=== PATIENT | female | born 1940 | race Caucasian/White ===

== ENCOUNTER 2017-01-03 17:05 | Observation (INO) ==
--- NOTE | 2017-01-03 17:17 | Emergency Department Note ---
Disposition Clinical Impression: Near syncope Abdominal pain Qualifiers: Abdominal location: epigastric Qualified Code(s): R10.13 - Epigastric pain Pancreatitis Qualifiers: Chronicity: acute Pancreatitis type: unspecified pancreatitis type Acute pancreatitis complication: unspecified Qualified Code(s): K85.90 - Acute pancreatitis without necrosis or infection, unspecified Disposition: Admitted As Inpatient Condition: Fair Referrals: NO,PCP [Non-Partnered Physician] - Forms: Work/School Release, ED Satisfaction Letter Time of Disposition: 19:29 Abdominal Pain HPI - General Chief Complaint: ED General Medical Stated Complaint: HYPOTENSION Time Seen by Provider: 01/03/17 17:10 Source: patient, EMS Mode of arrival: EMS Limitations: no limitations Nursing Notes Reviewed: Yes Vital Signs Reviewed: Yes - History of Present Illness HPI Narrative: Patient presents to the ED as a transfer from her primary care physician's office with hypotension. Patient reports that she had a checkup with her primary care physician a few weeks ago and was told that she needed to get an appointment to come in immediately. She was just able to get in a few days ago. She was told that she was anemic and they were unsure why. Patient reports that over the last 3 days she has had some diffuse crampy, stabbing bilateral lower quadrant abdominal pain. States that the pain has been getting worse and worse. She feels very weak and fatigued and feels very tired. 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 She presents from her PCPs office for hypotension and pain. No history of ulcers. Only abdominal surgery is hysterectomy several years ago. No fever or chills, shortness of breath, nausea , vomiting, diarrhea, melena, hematochezia, hematemesis, dysuria, pain or swelling in her legs. She also has been having epigastric pain, but she says it could be chest discomfort but denies any "chest pain" - Related Data Home Medications Medication Instructions Recorded Confirmed Calcium Carbonate/Vitamin D3 1 each PO DAILY 01/03/17 01/03/17 [Calcium 500 + Vit D 200 Caplet] Cholecalciferol (D-3) [Vitamin D] 1,000 unit PO DAILY 01/03/17 01/03/17 Ferrous Sulfate 325 mg PO BIDWM 01/03/17 01/03/17 Gabapentin [Neurontin] 1,200 mg PO HS 01/03/17 01/03/17 HYDROcodone/Acet 5/325 mg [[place] 1 tab PO TID PRN 01/03/17 01/03/17 5-325 mg] Lisinopril/Hydrochlorothiazide 0.5 each PO BID 01/03/17 01/03/17 [Zestoretic 20-12.5 mg Tablet] Metformin HCl [Metformin HCl ER] 1,000 mg PO QPM 01/03/17 01/03/17 [place]-3/Dha/Epa/Fish Oil [[place]-3 1,000 mg PO DAILY 01/03/17 01/03/17 Fish Oil 1,000 mg Sfgl] Omeprazole [PriLOSEC] 20 mg PO BIDAC 01/03/17 01/03/17 Pravastatin Sodium [Pravachol] 40 mg PO HS 01/03/17 01/03/17 Tamsulosin [Flomax] 0.4 mg PO DAILY 01/03/17 01/03/17 Allergies Allergy/AdvReac Type Severity Reaction Status Date / Time No Known Allergies Allergy Verified 01/03/17 17:22 All systems ED: reviewed and negative except as stated. Constitutional: Reports: weakness Cardiovascular: Reports: chest pain Gastrointestinal: Reports: abdominal pain. Denies: constipation, hematemesis, melena, hematochezia Musculoskeletal: Denies: back pain, neck pain Integumentary: Denies: rash Neurological: Reports: weakness (generalized ) Endocrine: Reports: fatigue Physical Exam - General Limitations: no limitations General appearance: alert, other (appears ill) - Head Head exam: atraumatic, normocephalic, normal inspection - Eye Eye exam: Present: normal appearance, PERRL, EOMI - ENT ENT exam: normal exam, normal oropharynx, mucous membranes dry - Neck Neck exam: Present: normal inspection, full ROM, trachea midline - Chest Chest inspection: Present: normal inspection, symmetric chest wall rise - Respiratory Respiratory exam: Present: normal lung sounds bilaterally - Cardiovascular Cardiovascular exam: Present: regular rate, normal rhythm, normal heart sounds - Abdominal Exam Abdominal exam: Present: soft, tenderness, distention (lower abdomen ), diminished bowel sounds, tenderness at [place]Burney's Point. Absent: guarding, rebound - Extremities Exam Extremities exam: Present: normal inspection, full ROM. Absent: pedal edema, calf tenderness - Neurological Exam Neurological exam: Present: alert, oriented X3, CN II-XII intact - Psychiatric Psychiatric exam: Present: anxious - Skin Skin exam: Present: warm, dry, intact, pallor. Absent: normal color Course Course Narrative: 76 year old female presenting with hypotension, suspected anemia and abdominal pain. Supposedly, patient is blood pressure was 60 systolic by EMS, but has not had any hypotension here. Labs are pending. CT ordered. - Reevaluation(s) Reevaluation #1: Patient's labs are back, and does not significantly anemic. CT scan did show a AAA without rupture. Lipase is elevated. To be related to pancreatitis. Patient still looks quite uncomfortable. Vital signs are stable. We will admit to the hospitalist service for near syncope, abdominal pain. Vital Signs Temperature 98 F 01/03/17 17:07 Pulse Rate 77 01/03/17 17:07 Respiratory Rate 22 01/03/17 17:07 Blood Pressure 146/73 01/03/17 17:07 O2 Sat by Pulse Oximetry 97 01/03/17 17:07 Temperature 98 F 01/03/17 17:07 Pulse Rate 71 01/03/17 19:08 Respiratory Rate 18 01/03/17 18:09 Blood Pressure 105/72 01/03/17 19:08 O2 Sat by Pulse Oximetry 94 01/03/17 19:08 Oxygen Delivery Oxygen Delivery Room Air Abdominal Pain - MDM Narrative Medical decision making narrative: I examined this patient and my medical decision-making was reviewed with the REWORK OPERATOR/PA/Advanced Practice Nurse/Resident Physician. I agree with the documented findings, disposition and treatment plan as described except to the extent set forth below. Patient was seen and evaluated on arrival by Dr. Adkins and myself, I agree with his evaluation and management plan, supervising care the patient's stay. Patient came from home she began feeling weak. Her family doctor said she is anemic and thinks she might have an ulcer or GI bleed. When the medics got there they said her blood pressures in the 60s they established 2 IVs of her fluids her pressures up to 120. Return to go ahead and get labs on her CT her abdomen and then reassess. She will most likely need admission. She is in agreement with plan. Chest X-Ray 01/03/17 17:09 IMPRESSION: No acute process. D/ / Inna Marroquin MD / Inna Marroquin MD Interpreting Provider: Inna Marroquin MD Abdomen/Pelvis CT 01/03/17 17:14 IMPRESSION: Fusiform infrarenal abdominal aortic aneurysm measuring 4.3 x 4.2 cm. Recommend follow up based on AAA recommendations below. No acute intra-abdominal or pelvic process is identified. Simple appearing left renal cyst. Pancreatic calcifications likely related to chronic pancreatitis. Diverticulosis without acute diverticulitis. RECOMMENDATIONS: Managing Abdominal Aortic Aneurysms 2.6-2.9 cm: 5 year follow up. 3.0-3.4 cm: 3 year follow up 3.5-3.9 cm: 1 year follow up. 4.0-4.4 cm: 1 year follow up. Recommend vascular consultation. 4.5-5.4 cm: 6 month follow up. Recommend vascular consultation. Greater than or equal to 5.5 cm: Referral to vascular surgeon. Reference: Ama et al. The care of patients with an abdominal aortic aneurysm: The Society of Vascular Surgery practice guidelines. Journal of Vascular Surgery. Vol 50, Number 85. Rogerio et al. Managing Incidental Findings on Abdominal and Pelvic CT and MRI, Part 2: White Paper of the ACR Incidental Findings Committee II on Vascular Findings. J Am Bessie Radiol 2013;10:789-794 D/ / Armando Lange MD / Armando Lange MD Interpreting Provider: Armando Lange MD - Medical Records Medical records reviewed: Yes I reviewed the patient's medical records. - Lab Data Lab results reviewed: Yes I reviewed the patient's lab results. Result diagrams: 01/03/17 17:47 01/03/17 17:47 Lab Results 01/03/17 01/03/17 01/03/17 Range/Units 17:47 17:47 17:47 WBC 9.3 (4.3-11.1) K/mcL RBC 4.35 (3.82-4.97) M/mcL Hgb 10.0 L (11.5-15.4) g/dL Hct 32.7 L (35.3-44.9) % MCV 75.2 L (83.0-100.0) fL MCH 23.0 L (28.0-33.3) pg MCHC 30.6 L (31.6-35.5) g/dL RDW 18.0 H (11.5-14.5) % Plt Count 236 (140-400) K/mcL MPV 9.6 (9.4-12.4) fL Immature Gran % 0.4 (0-4) % Seg Neutrophils % 70.9 % Lymphocytes % 18.8 % Monocytes % 9.2 % Eosinophils % 0.6 % Basophils % 0.1 % Neutrophils # 6.6 (1.6-8.9) K/mcL Lymphocytes # 1.8 (0.6-4.6) K/mcL Monocytes # 0.9 (0.0-1.3) K/mcL Eosinophils # 0.1 (0.0-0.6) K/mcL Basophils # 0.0 (0.0-0.2) K/mcL Sodium 135 L (136-145) mEq/L Potassium 3.7 (3.5-4.5) mEq/L Chloride 99 (98-109) mEq/L Carbon Dioxide 28 (19-29) mEq/L BUN 17 (7-20) mg/dL Creatinine 0.79 (0.57-1.11) mg/dL Est GFR ( Amer) > 60 (> 60) Est GFR (Non-Af Amer) > 60 (> 60) BUN/Creatinine Ratio 22 (6-26) Glucose 95 (70-99) mg/dL Calculated Osmolality 281 (280-300) Calcium 9.5 (8.6-10.8) mg/dL Total Bilirubin 0.6 (0.2-1.2) mg/dL AST 12 (5-34) Units/L ALT 8 (0-55) Units/L Alkaline Phosphatase 67 (38-126) Units/L Troponin I 0.00 (0-0.03) ng/mL Serum Total Protein 6.4 (6.0-8.3) g/dL Albumin 3.5 (3.5-5.0) g/dL Globulin 2.9 (2.4-3.5) g/dL Albumin/Globulin Ratio 1.2 (1.1-2.2) Lipase 133 H (8-78) Units/L Urine Color (Yellow) Urine Clarity (Clear) Urine pH (5.0-8.0) pH Units Ur Specific [place] (1.010-1.025) Urine Protein (Neg-Trace) mg/dL Urine Glucose (UA) (Normal) mg/dL Urine Ketones (Negative) mg/dL Urine Blood (Negative) Urine Nitrite (Negative) Urine Bilirubin (Negative) Urine Urobilinogen (Normal) mg/dL Ur Leukocyte Esterase (Negative) Ur Culture Indicated? (NO) Blood Type Antibody Screen 01/03/17 01/03/17 Range/Units 17:47 17:52 WBC (4.3-11.1) K/mcL RBC (3.82-4.97) M/mcL Hgb (11.5-15.4) g/dL Hct (35.3-44.9) % MCV (83.0-100.0) fL MCH (28.0-33.3) pg MCHC (31.6-35.5) g/dL RDW (11.5-14.5) % Plt Count (140-400) K/mcL MPV (9.4-12.4) fL Immature Gran % (0-4) % Seg Neutrophils % % Lymphocytes % % Monocytes % % Eosinophils % % Basophils % % Neutrophils # (1.6-8.9) K/mcL Lymphocytes # (0.6-4.6) K/mcL Monocytes # (0.0-1.3) K/mcL Eosinophils # (0.0-0.6) K/mcL Basophils # (0.0-0.2) K/mcL Sodium (136-145) mEq/L Potassium (3.5-4.5) mEq/L Chloride (98-109) mEq/L Carbon Dioxide (19-29) mEq/L BUN (7-20) mg/dL Creatinine (0.57-1.11) mg/dL Est GFR ( Amer) (> 60) Est GFR (Non-Af Amer) (> 60) BUN/Creatinine Ratio (6-26) Glucose (70-99) mg/dL Calculated Osmolality (280-300) Calcium (8.6-10.8) mg/dL Total Bilirubin (0.2-1.2) mg/dL AST (5-34) Units/L ALT (0-55) Units/L Alkaline Phosphatase (38-126) Units/L Troponin I (0-0.03) ng/mL Serum Total Protein (6.0-8.3) g/dL Albumin (3.5-5.0) g/dL Globulin (2.4-3.5) g/dL Albumin/Globulin Ratio (1.1-2.2) Lipase (8-78) Units/L Urine Color Yellow (Yellow) Urine Clarity Clear (Clear) Urine pH 6.5 (5.0-8.0) pH Units Ur Specific [place] 1.005 L (1.010-1.025) Urine Protein Negative (Neg-Trace) mg/dL Urine Glucose (UA) Normal (Normal) mg/dL Urine Ketones Negative (Negative) mg/dL Urine Blood Negative (Negative) Urine Nitrite Negative (Negative) Urine Bilirubin Negative (Negative) Urine Urobilinogen Normal (Normal) mg/dL Ur Leukocyte Esterase Negative (Negative) Ur Culture Indicated? NO (NO) Blood Type O POSITIVE Antibody Screen NEGATIVE - Radiology Data Radiology results reviewed: Yes I reviewed the patient's radiology results. - EKG Data EKG attestation: Yes I reviewed and interpreted this EKG. EKG results narrative: Sinus rhythm, rate 74, AK interval 147, QRS 87, QTC 43, normal axis, no ischemic changes. Krunal - Krunal Situation: Demographics, MOA Background: Presenting Complaint, Relevant PMH, Meds, & Allergies Assessment: Vital Signs, Course and respsone to treatment, Exam Concerns, Patient/Family Expectation, Pertinant Lab Results, Outstanding Labs Recommendation: Recommendation based on pending studies, treatments, or consults Krunal Report Given to: Dr. Donald Hector Repor Time: 19:29
[2017-01-03 17:53] LABS: Basophils % 0.1 %; Eosinophils # 0.1 K/mcL (0.0-0.6); Eosinophils % 0.6 %; Hematocrit 32.7 % (35.3-44.9); Immature Granulocytes % 0.4 % (0-4); Lymphocytes # 1.8 K/mcL (0.6-4.6); Lymphocytes % 18.8 %; Mean Corpuscular HGB Conc 30.6 g/dL (31.6-35.5); Mean Corpuscular Volume 75.2 fL (83.0-100.0); Mean Platelet Volume 9.6 fL (9.4-12.4); Monocytes # 0.9 K/mcL (0.0-1.3); Monocytes % 9.2 %; Neutrophils # 6.6 K/mcL (1.6-8.9); Platelet Count 236 K/mcL (140-400); Red Blood Count 4.35 M/mcL (3.82-4.97); Segmented Neutrophils % 70.9 %
[2017-01-03 18:02] LABS: Bilirubin,Urine Negative (Negative); Blood,Urine Negative (Negative); Clarity,Urine Clear (Clear); Color,Urine Yellow (Yellow); Glucose,Urine (UA) Normal (Normal); Ketones,Urine Negative (Negative); Leukocyte Esterase,Urine Negative (Negative); Nitrite,Urine Negative (Negative); PH,Urine 6.5 pH Units (5.0-8.0); Protein,Urine Negative (Neg-Trace); Specific Gravity,Urine 1.005 (1.010-1.025); Urobilinogen,Urine Normal (Normal)
[2017-01-03 18:09] LABS: Alanine Aminotransferase 8 Units/L (0-55); Albumin 3.5 g/dL (3.5-5.0); Albumin/Globulin Ratio 1.2 (1.1-2.2); Alkaline Phosphatase 67 Units/L (38-126); Aspartate Amino Transferase 12 Units/L (5-34); BUN/Creatinine Ratio 22 (6-26); Bilirubin,Total 0.6 mg/dL (0.2-1.2); Blood Urea Nitrogen 17 mg/dL (7-20); Calcium 9.5 mg/dL (8.6-10.8); Carbon Dioxide 28 mEq/L (19-29); Chloride 99 mEq/L (98-109); Globulin 2.9 g/dL (2.4-3.5); Glucose 95 mg/dL (70-99); Lipase 133 Units/L (8-78); Osmolality,Calculated 281 (280-300); Potassium 3.7 mEq/L (3.5-4.5); Sodium 135 mEq/L (136-145); Total Protein 6.4 g/dL (6.0-8.3); eGFR For African Americans > 60 (> 60); eGFR For Non-African Americans > 60 (> 60)
--- NOTE | 2017-01-03 20:34 | Internal Med History&Physical ---
<Daniel Duran - Last Filed: 01/04/17 02:21> Date of Encounter: 01/04/17 Time of Encounter: 20:34 Assessment and Plan (1) Abdominal pain Current visit: Yes Status: Acute -Epigastrium and bilateral lower abdominal pain. -Worse with eating. Relieved by rest/belching/flatus -PMH of IBS. -No hx of pancreatitis -CT abd w/out contrast or IV: 4.3 x 4.2 AAA, chronic pancreatitis, diverticulosis, anterior bladder wall thickening -Lipase 133. -Patient not hypotensive, no buits heard on abdominal exam, no paritoneal signs. Not concern for small AAA rupture. -No WBC or fever: doubt diverticulitis. -History of ulcers "one was dime size". Unsure if h pylori. Pain and symptoms suggest recurrent ulcer. Can explain drop in hgb. Feel like EGD is warranted. -UA negative. Hysterectomy. Denies dysuria. Plan -Consult GI: EDG and colonoscopy -Treat pancreatitis:fluids, NPO, pain control -NPO with sips for oral meds Qualifiers: Abdominal location: unspecified location Qualified Code(s): R10.9 - Unspecified abdominal pain (2) Diverticulosis Current visit: Yes Status: Acute -Revealed on CT from ED -Patient unaware of diverticulosis ddx Qualifiers: Diverticulosis bleeding: diverticulosis without bleeding (3) IBS (irritable bowel syndrome) Current visit: Yes Status: Acute -known history Qualifiers: Irritable bowel syndrome type: with both diarrhea and constipation Qualified Code(s): K58.2 - Mixed irritable bowel syndrome (4) History of gastric ulcer Current visit: Yes Status: Acute Plan -Consult GI for possible EGD (5) Diabetes Current visit: Yes Status: Acute -Consider sliding scale -D/c metformin for now Qualifiers: Diabetes mellitus type: type 2 Diabetes mellitus complication status: with unspecified complications 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 Concern for anemia and bleeding gastric ulcer. (8) Anemia Current visit: Yes Status: Acute -History of gastric ulcers -Hgb 8-->10 Plan -No intervention at this time -Continue to monitor Internal Medicine - H&P: HPI Chief complaint: Bilateral Lower abdominal pain Admitted From: Home Plans for Post Hospital Care: Home History of present illness: Ms. Tillman is a 76 year old female admitted for anemia, abdominal pain. Patient complaints of Epigastric, LLQ and RLQ pain. Bilateral LLQ and RLQ pain has patient most concerned. Has had pain for past couple of months. However, 2 days ago pain woke her up from sleep. Described as sharp and stabbing. Aggravated by eating. Revlieved by flatus. She has a known history of IBS and last colonoscopy 2-[address] Mar was normal. Epigastric pain for the last 7 days. Described as gnawing, burning and sharp at times. Worse with eating. Relieved by belching. Denies F/N/V. Admits to Diarrhea and constipation. No melena or hematochezia. EGD 20-30 years ago showed ulcers and she was "prescribed an antibiotic and rescoped a month later" , unsure if being treated for h pylori infection. Denies SUAREZ, numbness, tingling, focal neurological deficit. CP/SOB. Patient unaware of AAA discovered on CT today. Discussed with patient and need for frequent f/u. Unaware of diverticulosis, anterior bladder wall thickening. 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 Denies cholecysectomy. PMH:Gastric ulcers, IBS, DM. Denies pancreatitis SH:Former smoker, doesn't drink alcohol Past Med Surg Social Fam HX - Past Medical History Medical history: diabetes, hyperlipidemia, hypertension Psychiatric history: anxiety, depression - Past Surgical History Surgical History: hysterectomy - Social History Smoking Status: Former smoker Smokeless Tobacco Status: No Alcohol use: none Drug use: none - Family History Father Living Status: Cause of : [place] Hx Family Cardiac Disorders: Yes ([place]) Mother Living Status: Age at : 65 Hx Family Cardiac Disorders: Yes ([place]) Hx Family Endocrine Disorder: Yes ([place]) Brother Living Status: Cause of : [place] Hx Family Cardiac Disorders: Yes ([place]) Internal Medicine - H&P: Meds Calcium Carbonate/Vitamin D3 [Calcium 500 + Vit D 200 Caplet] 1 each PO DAILY [History] Cholecalciferol (D-3) [Vitamin D] 1,000 unit PO DAILY 01/03/17 [History] Ferrous Sulfate 325 mg PO BIDWM 01/03/17 [History] Gabapentin [Neurontin] 1,200 mg PO HS 01/03/17 [History] HYDROcodone/Acet 5/325 mg [[place] 5-325 mg] 1 tab PO TID PRN 01/03/17 [History] Lisinopril/Hydrochlorothiazide [Zestoretic 20-12.5 mg Tablet] 0.5 each PO BID [History] Metformin HCl [Metformin HCl ER] 1,000 mg PO QPM 01/03/17 [History] [place]-3/Dha/Epa/Fish Oil [[place]-3 Fish Oil 1,000 mg Sfgl] 1,000 mg PO DAILY [History] Omeprazole [PriLOSEC] 20 mg PO BIDAC 01/03/17 [History] Pravastatin Sodium [Pravachol] 40 mg PO HS 01/03/17 [History] Tamsulosin [Flomax] 0.4 mg PO DAILY 01/03/17 [History] Allergies No Known Allergies Allergy (Verified 01/03/17 17:22) All Systems PM: A 10-system review of systems was performed and is negative for pertinent findings except as documented above in the HPI. - Constitutional Constitutional: as per HPI - EENT Eyes: as per HPI - Cardiovascular Cardiovascular ROS IM: as per HPI - Respiratory Respiratory: as per HPI - Gastrointestinal Gastrointestinal: as per HPI - Constitutional Vitals: Temp Pulse Resp BP Pulse Ox 98 F 71 20 134/87 94 01/03/17 17:07 01/03/17 19:08 01/03/17 20:15 01/03/17 20:15 01/03/17 19:08 General appearance: Present: mild distress, A&O X 3, answers questions appropriately - Head Head exam: Present: atraumatic, normocephalic - Eye Eye exam: Present: PERRL, conjuntiva pink, sclera anicteric Pupils: Present: PERRL - Respiratory Respiratory exam: Present: CTAB. Absent: accessory muscle use, rales, rhonchi, wheezes - Cardiovascular Cardiovascular exam: Present: RRR, +S1, +S2. Absent: diastolic murmur, gallop, rubs, systolic murmur - GI/Abdominal GI/Abdominal exam: Present: normal bowel sounds, soft (moderate ), tenderness, no peritoneal signs. Absent: guarding, mass - Psychiatric Psychiatric exam: Present: normal affect, normal mood Internal Med - H&P Results - Labs CBC & Chem 7: 01/03/17 17:47 01/03/17 17:47 - EKG Data -: EKG Interpreted by Myself EKG shows normal: sinus rhythm - EKG Data Prior EKG available for review: no Interpretation IM: normal EKG - Diagnostic Studies CT scan - abdomen Status: image reviewed by me Other Images Status: image reviewed by me <Louisa Bennett - Last Filed: 01/04/17 05:43> Date of Encounter: 01/04/17 Internal Medicine - H&P: HPI History of present illness: Ms. Tillman is a 76 year old female All Systems PM: A 10-system review of systems was performed and is negative for pertinent findings except as documented above in the HPI. - Constitutional Vitals: Temp Pulse Resp BP Pulse Ox 98.1 F 84 16 107/58 96 01/04/17 04:18 01/04/17 04:18 01/04/17 04:18 01/04/17 04:18 01/04/17 04:18 Internal Med - H&P Results - Labs CBC & Chem 7: 01/04/17 04:25 01/04/17 04:25 Labs: Short CBC 01/04/17 Range/Units 04:25 WBC 7.6 (4.3-11.1) K/mcL Hgb 9.1 L (11.5-15.4) g/dL Hct 29.9 L (35.3-44.9) % Plt Count 225 (140-400) K/mcL Neutrophils # 4.7 (1.6-8.9) K/mcL BMP 01/04/17 04:25 Sodium 139 Potassium 3.6 Chloride 104 Carbon Dioxide 29 BUN 12 Creatinine 0.71 Glucose 93 Calcium 8.7 - Attending Attestation Patient seen and examined, agree with assessment and plan of PGY-1 Daniel Reyes. Patient with reported hypotension and near syncope at PCP office in setting of epigastric and lower abdominal pain. Concern for both peptic ulcer disease and pancreatitis. Anemia is new and concerning about bleeding ulcer. GI consulted for assistance. BP stable since patient arrived in ER. Will hold lisinopril/HCTz. IV fluids for pancreatitis.
[2017-01-03] MEDS ORDERED: Naloxone 0.4 MG/ML INJ IVP PRN (21:08)
[2017-01-03] MEDS ORDERED: MOM Conc 10 ML UD.LIQ PO PRN (21:08)
[2017-01-03] MEDS ORDERED: Ondansetron 4 MG/2 ML VIAL IVP PRN (21:08)
[2017-01-03] MEDS ORDERED: *HR* HYDROcodone/Acet 5/325 mg TABLET PO PRN (21:13)
[2017-01-03] MEDS ORDERED: Lisinopril-HCTZ 20-12.5mg TABLET PO SCH (21:15)
[2017-01-03] MEDS: Gabapentin 400 MG CAPSULE PO SCH (21:44)
[2017-01-03] MEDS: 0.9 % Sodium Chloride 1,000 ML IVC SCH (21:45)
[2017-01-03] MEDS ORDERED: D5% in Water 1,000 ML IVC PRN (23:21)
[2017-01-03] MEDS ORDERED: *HR* Dextrose 50 % in Water (Syg) 50 ML SYRINGE IVP PRN (23:21)
[2017-01-03] MEDS ORDERED: Dextrose Gel 15 GM PO PRN ×2 (23:21)
[2017-01-03] MEDS: Insulin LISPRO 300 UNITS/3 ML VIAL SQ SCH (23:29)
[2017-01-04] MEDS: *HR* Morphine 2 MG/ML SYRINGE IVP PRN ×3 (00:57→11:03)
[2017-01-04 04:48] LABS: INR 1.2; Prothrombin Time 12.8 Seconds (9.4-12.1)
[2017-01-04 04:51] LABS: Activated Partial Thrombo Time 23.9 Seconds (26.0-36.0)
[2017-01-04 04:52] LABS: Basophils % 0.1 %; Eosinophils # 0.1 K/mcL (0.0-0.6); Eosinophils % 1.6 %; Hematocrit 29.9 % (35.3-44.9); Hemoglobin 9.1 g/dL (11.5-15.4); Immature Granulocytes % 0.5 % (0-4); Lymphocytes # 2.1 K/mcL (0.6-4.6); Lymphocytes % 27.9 %; Mean Corpuscular HGB Conc 30.4 g/dL (31.6-35.5); Mean Corpuscular Hemoglobin 23.2 pg (28.0-33.3); Mean Corpuscular Volume 76.3 fL (83.0-100.0); Mean Platelet Volume 9.6 fL (9.4-12.4); Monocytes # 0.6 K/mcL (0.0-1.3); Monocytes % 8.2 %; Neutrophils # 4.7 K/mcL (1.6-8.9); Platelet Count 225 K/mcL (140-400); Red Blood Count 3.92 M/mcL (3.82-4.97); Red Cell Distribution Width 18.2 % (11.5-14.5); Segmented Neutrophils % 61.7 %
[2017-01-04 05:07] LABS: BUN/Creatinine Ratio 17 (6-26); Blood Urea Nitrogen 12 mg/dL (7-20); Calcium 8.7 mg/dL (8.6-10.8); Carbon Dioxide 29 mEq/L (19-29); Chloride 104 mEq/L (98-109); Glucose 93 mg/dL (70-99); Osmolality,Calculated 287 (280-300); Potassium 3.6 mEq/L (3.5-4.5); Sodium 139 mEq/L (136-145); eGFR For African Americans > 60 (> 60); eGFR For Non-African Americans > 60 (> 60)
[2017-01-04] MEDS: 0.9 % Sodium Chloride 1,000 ML IVC SCH ×3 (05:42→21:23)
[2017-01-04] MEDS ORDERED: *HR* Enoxaparin 40 MG/0.4 ML SYRINGE SQ SCH (06:00)
[2017-01-04] MEDS: Insulin LISPRO 300 UNITS/3 ML VIAL SQ SCH ×3 (06:12→19:30)
[2017-01-04] MEDS: Cholecalciferol (D-3) 1,000 UNIT TABLET PO SCH (08:12)
[2017-01-04] MEDS: Omega-3 Fish Oil 1,000 Mg PO SCH (08:12)
[2017-01-04] MEDS: Calcium 500-Vit D3 PO SCH (08:12)
[2017-01-04 10:22] LABS: % Iron Saturation 21 % (15-50); Iron 87 mcg/dL (50-170); Transferrin 294 mg/dL (180-382)
[2017-01-04 10:36] LABS: Ferritin 28 ng/ml (5-204)
--- NOTE | 2017-01-04 11:40 | Electrocardiograph Report ---
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
[2017-01-04 11:44] LABS: Folate 13.1 ng/mL (7.0-31.4)
--- NOTE | 2017-01-04 12:35 | Gastroenterology Consult Note ---
<Bowen [place] - Last Filed: 01/04/17 12:32> Date of Encounter: 01/04/17 Time of Encounter: 10:45 - Assessment and plan (1) Pancreatitis Current Visit: Yes Status: Acute Assessment and plan: Lipase slightly elevated to 133. CT A/P with no focal pancreatic mass, no peripancreatic inflammatory process identified, a crit calcifications are seen likely related to chronic pancreatitis. Abdominal aortic aneurysm measuring 4.3 x 4.2 cm. Continue IV fluids, pain control, and antiemetics. Qualifiers: Chronicity: acute Pancreatitis type: unspecified pancreatitis type Acute pancreatitis complication: unspecified Qualified Code(s): K85.90 - Acute pancreatitis without necrosis or infection, unspecified (2) [place] Current Visit: Yes Status: Acute Assessment and plan: Hgb 10 on admission and 9.1 this AM. Iron profile and ferritin pending. Continue to monitor CBC and transfuse PRBC as needed. Plan for EGD and colonoscopy tomorrow. Clear liquid diet today, no red or purple. NPO at midnight. If unable tolerate NuLytely please use MiraLAX prep. If not clear by 6 AM, give 2 tap water enemas. (3) History of gastric ulcer Current Visit: Yes Status: Acute (4) Abdominal pain Current Visit: Yes Status: Acute Assessment and plan: Epigastric and LUQ pain. Concern for ulcer. Continue PPI. Plan for EGD tomorrow to r/o esophagitis, gastritis, duodenitis, PUD, MW tear, or AVM. Qualifiers: Abdominal location: epigastric Qualified Code(s): R10.13 - Epigastric pain - Time Spent With Patient Total time spent is greater than 50% in coordination of care (as documented) at patient's floor/unit and/or counseling patient: GI History of Present Illness - Data of Consult Patient: new to practice Consult date: 01/04/17 Requesting Physician: Maribell Beltrán - Consult Narrative Reason for consult: epigastric pain, hx of ulcer History of present illness: Ms. Tillman is a 76 year old female with PMHx of DM, HLD, HTN who presented with epigastric, LLQ, and RLQ abdominal pain. She reports the pain has been present for the past couple of months, but worsened over the past 2 days. She states the pain woke her from sleep and described the pain as sharp and stabbing. Pain is worsened by eating and relieved with flatus. Her epigastric pain started 7 days ago, which is worsened with eating and relieved with belching. She states she was started on omeprazole 2 days ago, and it has not improved symptoms. She denies fever, nausea, or vomiting. Admits to diarrhea and constipation. No melena or hematochezia. Hgb on admission was 10 and this AM Hgb 9.1. Procedures: Colonoscopy 03/09/2014 Dr. Mar: Diverticulosis, repeat colonoscopy in 7 years. NSAIDs: None Anticoagulation: None Past Med Surg Social Fam HX - Past Medical History Medical history: diabetes, hyperlipidemia, hypertension Psychiatric history: anxiety, depression - Past Surgical History Surgical History: hysterectomy - Social History Smoking Status: Former smoker Smokeless Tobacco Status: No Alcohol use: none Drug use: none - Family History Father Living Status: Cause of : [place] Hx Family Cardiac Disorders: Yes ([place]) Mother Living Status: Age at : 65 Hx Family Cardiac Disorders: Yes ([place]) Hx Family Endocrine Disorder: Yes (DM) Brother Living Status: Cause of : [place] Hx Family Cardiac Disorders: Yes ([place]) - Gastrointestinal Gastrointestinal: Present: as per HPI - Constitutional Constitutional: as per HPI - EENT Eyes: as per HPI Ears: Present: as per HPI Nose, mouth and throat: Present: as per HPI - Cardiovascular Cardiovascular ROS: Present: as per HPI - Respiratory Respiratory IM: Present: as per HPI - Genitourinary Genitourinary: Absent: change in color, Urinary frequency - Neurological ROS Neurological GI: Present: as per HPI - Hematologic/Lymphatic Hematologic/Lymphatic pediatric: Present: as per HPI - Musculoskeletal Musculoskeletal ROS GI: Present: as per HPI - Integumentary Integumentary GI: Present: as per HPI - Psychiatric ROS Psychiatric GI: Present: as per HPI - Endocrine Endocrine IM: Present: as per HPI - Constitutional Vitals: Temp Pulse Resp BP Pulse Ox 98.1 F 75 15 156/67 98 01/04/17 11:13 01/04/17 11:13 01/04/17 11:13 01/04/17 11:13 01/04/17 11:13 General appearance: Present: cooperative, A&O X 3, no acute distress, answers questions appropriately - Head Head exam: Present: atraumatic, normocephalic - Eye Eye exam: Present: normal appearance, sclera anicteric - ENT ENT exam: Present: mucous membranes dry - Neck Neck exam general surgery: Present: normal inspection, trachea midline - Respiratory Respiratory exam: Present: CTAB. Absent: rales, rhonchi - Cardiovascular Cardiovascular exam: Present: RRR, +S1, +S2 - GI/Abdominal GI/Abdominal exam: Present: soft, tenderness (epigastric and LUQ), no peritoneal signs. Absent: distended, firm, guarding - Rectal Rectal exam: Present: deferred - Extremities Exam Extremities exam: Present: warm - Neurological Exam Neurological exam: Present: no focal deficits - Psychiatric Psychiatric exam: Present: normal affect, normal mood - Skin Skin exam: Present: dry, intact, normal color, warm Results - Labs CBC & Chem 7: 01/04/17 04:25 01/04/17 04:25 Labs: Last Result Calcium 8.7 mg/dL (8.6-10.8) 01/04/17 04:25 Iron 87 mcg/dL (50-170) 01/04/17 04:25 % Saturation 21 % (15-50) 01/04/17 04:25 Transferrin 294 mg/dL (180-382) 01/04/17 04:25 Ferritin 28 ng/ml (5-204) 01/04/17 04:25 Troponin I 0.00 ng/mL (0-0.03) 01/03/17 17:47 Vitamin B12 261 pg/mL (213-816) 01/04/17 04:25 Folate 13.1 ng/mL (7.0-31.4) 01/04/17 04:25 Entire Visit Hgb 9.1 g/dL (11.5-15.4) L 01/04/17 04:25 Hct 29.9 % (35.3-44.9) L 01/04/17 04:25 PT 12.8 Seconds (9.4-12.1) H 01/04/17 04:25 Ferritin 28 ng/ml (5-204) 01/04/17 04:25 Total Bilirubin 0.6 mg/dL (0.2-1.2) 01/03/17 17:47 AST 12 Units/L (5-34) 01/03/17 17:47 ALT 8 Units/L (0-55) 01/03/17 17:47 Lipase 133 Units/L (8-78) H 01/03/17 17:47 Folate 13.1 ng/mL (7.0-31.4) 01/04/17 04:25 - ABG ABG results: PT/INR, D-dimer PT 12.8 Seconds (9.4-12.1) H 01/04/17 04:25 Consult Discharge Plan - Plan Referrals: Attila Alvarez MD [Primary Care Provider] - 01/12/17 2:00 pm (Previously scheduled appt for 01/09/17 is cancelled. New appt scheduled for 01/12/17 at 2: 00pm ) <Lulu Mar - Last Filed: 01/04/17 18:01> Date of Encounter: 01/04/17 Time of Encounter: 14:00 - Time Spent With Patient Total time spent is greater than 50% in coordination of care (as documented) at patient's floor/unit and/or counseling patient: GI History of Present Illness - Data of Consult Requesting Physician: Maribell Beltrán - Consult Narrative History of present illness: Ms. Tillman is a 76 year old female - Constitutional Vitals: Temp Pulse Resp BP Pulse Ox 98.5 F 80 18 151/65 92 01/04/17 14:54 01/04/17 14:54 01/04/17 14:54 01/04/17 14:54 01/04/17 14:54 Results - Labs CBC & Chem 7: 01/04/17 04:25 01/04/17 04:25 Labs: Last Result Calcium 8.7 mg/dL (8.6-10.8) 01/04/17 04:25 Iron 87 mcg/dL (50-170) 01/04/17 04:25 % Saturation 21 % (15-50) 01/04/17 04:25 Transferrin 294 mg/dL (180-382) 01/04/17 04:25 Ferritin 28 ng/ml (5-204) 01/04/17 04:25 Troponin I 0.00 ng/mL (0-0.03) 01/03/17 17:47 Vitamin B12 261 pg/mL (213-816) 01/04/17 04:25 Folate 13.1 ng/mL (7.0-31.4) 01/04/17 04:25 Entire Visit Hgb 9.1 g/dL (11.5-15.4) L 01/04/17 04:25 Hct 29.9 % (35.3-44.9) L 01/04/17 04:25 PT 12.8 Seconds (9.4-12.1) H 01/04/17 04:25 Ferritin 28 ng/ml (5-204) 01/04/17 04:25 Total Bilirubin 0.6 mg/dL (0.2-1.2) 01/03/17 17:47 AST 12 Units/L (5-34) 01/03/17 17:47 ALT 8 Units/L (0-55) 01/03/17 17:47 Lipase 133 Units/L (8-78) H 01/03/17 17:47 Folate 13.1 ng/mL (7.0-31.4) 01/04/17 04:25 - ABG ABG results: PT/INR, D-dimer PT 12.8 Seconds (9.4-12.1) H 01/04/17 04:25 - Attending Attestation I examined this patient and my medical decision-making was reviewed with the BALL HOLDER/PA/Advanced Practice Nurse/Resident Physician. I agree with the documented findings, disposition and treatment plan as described except to the extent set forth below.
[2017-01-04] MEDS ORDERED: SODIUM CHLORIDE/NAHCO3/KCL/PEG 4,000 ML SOLN.RECON PO ONE (17:00)
--- NOTE | 2017-01-04 18:14 | Internal Med Progress Note ---
Date of Encounter: 01/04/17 Time of Encounter: 15:30 - Assessment and plan (1) Abdominal pain Current Visit: Yes Status: Acute Assessment and plan: Patient complaining of severe abdominal pain that is coming in waves and feels like severe cramps. She complains of pain to her epigastric area and bilateral lower quadrants. Abdomen is diffusely tender on examination. Positive bowel sounds noted in all 4 quadrants. Will increase her pain medication. GI is on board, plan is for EGD and colonoscopy tomorrow. Chest x-ray negative. Abdominal CT consistent with AAA and chronic pancreatitis. Urinalysis negative. ITS Impressions Chest X-Ray 01/03/17 17:09 IMPRESSION: No acute process. D/ / Inna Marroquin MD / Inna Marroquin MD Interpreting Provider: Inna Marroquin MD Abdomen/Pelvis CT 01/03/17 17:14 IMPRESSION: Fusiform infrarenal abdominal aortic aneurysm measuring 4.3 x 4.2 cm. Recommend follow up based on AAA recommendations below. No acute intra-abdominal or pelvic process is identified. Simple appearing left renal cyst. Pancreatic calcifications likely related to chronic pancreatitis. Diverticulosis without acute diverticulitis. RECOMMENDATIONS: Managing Abdominal Aortic Aneurysms 2.6-2.9 cm: 5 year follow up. 3.0-3.4 cm: 3 year follow up 3.5-3.9 cm: 1 year follow up. 4.0-4.4 cm: 1 year follow up. Recommend vascular consultation. 4.5-5.4 cm: 6 month follow up. Recommend vascular consultation. Greater than or equal to 5.5 cm: Referral to vascular surgeon. Reference: Ama et al. The care of patients with an abdominal aortic aneurysm: The Society of Vascular Surgery practice guidelines. Journal of Vascular Surgery. Vol 50, Number 85. Rogerio et al. Managing Incidental Findings on Abdominal and Pelvic CT and MRI, Part 2: White Paper of the ACR Incidental Findings Committee II on Vascular Findings. J Am Bessie Radiol 2013;10:789-794 D/ / Armando Lange MD / Armando Lange MD Interpreting Provider: Armando Lange MD (2) Anemia Current Visit: Yes Status: Chronic Assessment and plan: New since the beginning of this month. Unclear etiology. Iron levels normal as is her B12 and folate. GI on board, plans for EGD and colonoscopy tomorrow. (3) AAA (abdominal aortic aneurysm) Current Visit: Yes Status: Chronic Assessment and plan: Follow-up outpatient Qualifiers: Presence of rupture: without rupture Qualified Code(s): I71.4 - Abdominal aortic aneurysm, without rupture (4) Generalized weakness Current Visit: Yes Status: Acute Assessment and plan: Likely secondary to severe pain and subsequent bed rest. We will reassess tomorrow after her procedure and involve OT and PT if indicated. (5) Pancreatitis Current Visit: Yes Status: Chronic Assessment and plan: LFTs normal. Imaging consistent with chronic pancreatitis. GI on board. Qualifiers: Chronicity: acute Pancreatitis type: unspecified pancreatitis type Acute pancreatitis complication: unspecified Qualified Code(s): K85.90 - Acute pancreatitis without necrosis or infection, unspecified (6) Diverticulosis Current Visit: Yes Status: Chronic Assessment and plan: No evidence for diverticulitis (7) IBS (irritable bowel syndrome) Current Visit: Yes Status: Chronic Qualifiers: Irritable bowel syndrome type: with both diarrhea and constipation Qualified Code(s): K58.2 - Mixed irritable bowel syndrome (8) History of gastric ulcer Current Visit: Yes Status: Chronic (9) Diabetes Current Visit: Yes Status: Chronic Assessment and plan: Controlled with an A1c of 5.7%. Continue sliding scale while admitted. Qualifiers: Diabetes mellitus type: type 2 Diabetes mellitus complication status: with unspecified complications Diabetes mellitus fdc insulin use: without intermediate designer use Qualified Code(s): E11.8 - Type 2 diabetes mellitus with unspecified complications (10) DVT prophylaxis Current Visit: Yes Status: Acute Assessment and plan: IPC's ordered. Pharmacologic prophylaxis secondary to worsening anemia of unknown etiology. - Subjective Interval history: Patient seen and examined. On examination, patient resting supine in bed. Patient states she cannot move because she is having severe bouts of severe cramping and generalized abdominal pain. She denies nausea at this time. She states she feels extremely weak. - Constitutional Vitals: Temp Pulse Resp BP Pulse Ox 98.5 F 80 18 151/65 92 01/04/17 14:54 01/04/17 14:54 01/04/17 14:54 01/04/17 14:54 01/04/17 14:54 General appearance: Present: mild distress (2/2 pain), A&O X 3, pleasant, answers questions appropriately - Head Head exam: Present: atraumatic, normocephalic - Eye Eye exam: Present: PERRL, conjuntiva pink, sclera anicteric Pupils: Present: PERRL - Neck Neck exam general surgery: Present: supple, trachea midline. Absent: lymphadenopathy - Respiratory Respiratory exam: Present: decreased breath sounds. Absent: accessory muscle use, rales, respiratory distress, rhonchi, wheezes - Cardiovascular Cardiovascular exam: Present: RRR, +S1, +S2. Absent: diastolic murmur, gallop, rubs, systolic murmur - GI/Abdominal GI/Abdominal exam: Present: distended, guarding, normal bowel sounds, soft, tenderness, no peritoneal signs - Extremities Exam Extremities exam: Present: warm, radial pulses palpable and symetrical. Absent : calf tenderness, cyanotic, pedal edema - Neurological Exam Neurological exam: Present: alert, CN II-XII intact, oriented X3, no focal deficits, strengths equal and symetr throughout. Absent: pronater drift, facial droop, speech deficit - Skin Skin exam: Present: dry, intact, pallor, warm Internal Medicine: Result - Labs CBC & Chem 7: 01/04/17 04:25 01/04/17 04:25 Labs: Short CBC 01/04/17 Range/Units 04:25 WBC 7.6 (4.3-11.1) K/mcL Hgb 9.1 L (11.5-15.4) g/dL Hct 29.9 L (35.3-44.9) % Plt Count 225 (140-400) K/mcL Neutrophils # 4.7 (1.6-8.9) K/mcL BMP 01/04/17 04:25 Sodium 139 Potassium 3.6 Chloride 104 Carbon Dioxide 29 BUN 12 Creatinine 0.71 Glucose 93 Calcium 8.7 - ABG Interpretation ABG results: PT/INR, D-dimer PT 12.8 Seconds (9.4-12.1) H 01/04/17 04:25 Consult Discharge Plan - Plan Referrals: Attila Alvarez MD [Primary Care Provider] - 01/12/17 2:00 pm (Previously scheduled appt for 01/09/17 is cancelled. New appt scheduled for 01/12/17 at 2: 00pm )
[2017-01-04] MEDS ORDERED: *HR* Morphine 2 MG/ML SYRINGE IVP PRN (18:20)
[2017-01-04] MEDS: Gabapentin 400 MG CAPSULE PO SCH (22:50)
[2017-01-05] MEDS: Insulin LISPRO 300 UNITS/3 ML VIAL SQ SCH ×3 (00:05→11:54)
[2017-01-05 05:01] LABS: Basophils % 0.1 %; Eosinophils # 0.2 K/mcL (0.0-0.6); Eosinophils % 2.5 %; Hematocrit 29.3 % (35.3-44.9); Hemoglobin 8.8 g/dL (11.5-15.4); Immature Granulocytes % 0.4 % (0-4); Lymphocytes # 1.5 K/mcL (0.6-4.6); Lymphocytes % 22.7 %; Mean Corpuscular Hemoglobin 23.3 pg (28.0-33.3); Mean Corpuscular Volume 77.5 fL (83.0-100.0); Mean Platelet Volume 9.9 fL (9.4-12.4); Monocytes # 0.7 K/mcL (0.0-1.3); Monocytes % 10.7 %; Neutrophils # 4.3 K/mcL (1.6-8.9); Platelet Count 249 K/mcL (140-400); Red Blood Count 3.78 M/mcL (3.82-4.97); Red Cell Distribution Width 18.3 % (11.5-14.5); Segmented Neutrophils % 63.6 %
[2017-01-05 05:27] LABS: BUN/Creatinine Ratio 10 (6-26); Blood Urea Nitrogen 7 mg/dL (7-20); Calcium 8.9 mg/dL (8.6-10.8); Carbon Dioxide 24 mEq/L (19-29); Chloride 109 mEq/L (98-109); Glucose 110 mg/dL (70-99); Osmolality,Calculated 289 (280-300); Potassium 3.5 mEq/L (3.5-4.5); Sodium 140 mEq/L (136-145); eGFR For African Americans > 60 (> 60); eGFR For Non-African Americans > 60 (> 60)
[2017-01-05] MEDS: 0.9 % Sodium Chloride 1,000 ML IVC SCH (05:57)
[2017-01-05] MEDS: Calcium 500-Vit D3 PO SCH (07:59)
[2017-01-05] MEDS: Omega-3 Fish Oil 1,000 Mg PO SCH (08:00)
[2017-01-05] MEDS: Cholecalciferol (D-3) 1,000 UNIT TABLET PO SCH (08:00)
[2017-01-05] MEDS ORDERED: Tetracaine/Benzocaine/Butamben 200MG/SPRAY (100SPY/BOT) MM ONE (12:11)
[2017-01-05] MEDS ORDERED: *HR* FentaNYL (PF) 100 MCG/2 ML VIAL ONE (12:11)
[2017-01-05] MEDS ORDERED: Simethicone 40 MG/0.6 ML MLS IR ONE ×2 (12:11→12:15)
[2017-01-05] MEDS ORDERED: *HR* Midazolam HCl 5 MG/5 ML VIAL IVP ONE (12:11)
--- NOTE | 2017-01-05 12:11 | Pre-Sedation Evaluation ---
Pre-sedation evaluation - Pre-sedation checklist Recent Vitals: Last Vital Signs Temp 97.8 F 01/05/17 11:21 Pulse 65 01/05/17 11:21 Resp 15 01/05/17 11:21 BP 161/65 01/05/17 11:21 Pulse Ox 98 01/05/17 11:21 ASA Classification *see protocol: CLASS III-Severe systemic disease, E-EMERGENCY -Add to any of the above to indicate emergent Plan of Care: Pt appropriate candidate for procedure/moderate/conscious sedation , Risks/benefits of procedure/sedation discussed w/ patient/family
[2017-01-05] MEDS: *HR* FentaNYL (PF) 100 MCG/2 ML VIAL IVP PRN ×2 (12:21→12:29)
[2017-01-05] MEDS: *HR* Midazolam HCl 5 MG/5 ML VIAL IVP PRN ×2 (12:22→12:30)
[2017-01-05] MEDS ORDERED: 0.9 % Sodium Chloride 1,000 ML IVC SCH (12:45)
[2017-01-05 15:37] VITALS: BP 175/66
--- NOTE | 2017-01-05 16:41 | Discharge Summary ---
Date of Encounter: 01/05/17 Time of Encounter: 15:00 - Discharge Diagnosis (1) Abdominal pain Priority: Primary Status: Acute Comments: Patient's pain was much improved on the discharge and she no longer had the cramping sensation. EGD revealed gastritis and colonoscopy was unremarkable. Patient was able to tolerate a regular diet prior to discharge. Abdominal CT consistent with AAA and chronic pancreatitis. Urinalysis negative. Recommend close outpatient follow-up. (2) Anemia Priority: Secondary Status: Chronic Comments: New since the beginning of this month. Unclear etiology. Iron levels normal as is her B12 and folate. She was started on iron supplementation per her primary care provider. EGD revealed mild gastritis and colonoscopy was unremarkable. Her primary care provider has set her up with hematology Dr. Mitchell whom she will see on 01/16/17 at 250pm (3) AAA (abdominal aortic aneurysm) Priority: Secondary Status: Chronic Comments: Follow-up outpatient. No acute intervention warranted. Qualifiers: Presence of rupture: without rupture Qualified Code(s): I71.4 - Abdominal aortic aneurysm, without rupture (4) Generalized weakness Priority: Primary Status: Acute Comments: Patient was able to ambulate freely back and forth around her room and declined any OT or PT evaluations. (5) Pancreatitis Priority: Secondary Status: Chronic Comments: LFTs normal. Imaging consistent with chronic pancreatitis. GI on board-follow- up outpatient. Qualifiers: Chronicity: acute Pancreatitis type: unspecified pancreatitis type Acute pancreatitis complication: unspecified Qualified Code(s): K85.90 - Acute pancreatitis without necrosis or infection, unspecified (6) Diverticulosis Priority: Secondary Status: Chronic Comments: No indication of diverticulitis. 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 Follow-up outpatient Qualifiers: Diabetes mellitus type: type 2 Diabetes mellitus complication status: with unspecified complications Diabetes mellitus manager terminal insulin use: without detention use Qualified Code(s): E11.8 - Type 2 diabetes mellitus with unspecified complications (10) DVT prophylaxis Priority: Primary Status: Acute Comments: IPC's ordered. Pharmacologic prophylaxis secondary to worsening anemia of unknown etiology. - Discharge Medications Prescriptions: Calcium Polycarbophil [Fibercon] 625 mg PO DAILY #60 tablet Sucralfate [Carafate] 1 gm PO TID #42 tablet Home Medications: Calcium Carbonate/Vitamin D3 [Calcium 500-Vit D3 200 Caplet] 1 each PO DAILY [History] Cholecalciferol (D-3) [Vitamin D] 1,000 unit PO DAILY 01/03/17 [History] Ferrous Sulfate 325 mg PO BIDWM 01/03/17 [History] Gabapentin [Neurontin] 1,200 mg PO HS 01/03/17 [History] HYDROcodone/Acet 5/325 mg [[place] 5-325 mg] 1 tab PO TID PRN 01/03/17 [History] Lisinopril/Hydrochlorothiazide [Zestoretic 20-12.5 mg Tablet] 0.5 each PO BID [History] Metformin HCl [Metformin HCl ER] 1,000 mg PO QPM 01/03/17 [History] [place]-3/Dha/Epa/Fish Oil [[place]-3 Fish Oil 1,000 mg Sfgl] 1,000 mg PO DAILY [History] Omeprazole [PriLOSEC] 20 mg PO BIDAC 01/03/17 [History] Pravastatin Sodium [Pravachol] 40 mg PO HS 01/03/17 [History] Tamsulosin [Flomax] 0.4 mg PO DAILY 01/03/17 [History] Calcium Polycarbophil [Fibercon] 625 mg PO DAILY #60 tablet 01/05/17 [Rx] Sucralfate [Carafate] 1 gm PO TID #42 tablet 01/05/17 [Rx] Allergies/Adverse Reactions: Allergies No Known Allergies Allergy (Verified 01/03/17 17:22) Date of admission: 01/03/17 20:05 Primary care physician: Attila Alvarez MD Consults: 01/03/17 22:07 Consult to Gastroenterology [CONS] Routine Consulting Provider: [facility] Reason for Consult: EGD. Epigastric pain. Anemia. Hx of "dime size ulcer". EGD 30 years ago. Call Completed: Yes Discharging clinician: Maribell Monterroso Anticipated date of discharge: 01/05/17 - Patient Status Disposition: Home, Self-Care Condition: Fair Functional capacity at discharge: independent ambulation Overall status at discharge: patient is progressing back to baseline - Discharge Instructions Follow Up With: Attila Alvarez MD [Primary Care Provider] - 01/12/17 2:00 pm (Previously scheduled appt for 01/09/17 is cancelled. New appt scheduled for 01/12/17 at 2: 00pm ) Anoop Mitchell MD [Partnered Physician] - Additional Instructions: Follow-up with primary care provider as scheduled. Follow-up with Dr. Mitchell 01/16/17 at 250pm. - Diet and Activity Activity: increase activity as tolerated Diet: diabetic diet Hospital course: Ms. Tillman is a 76 year old female with past medical history of recent onset of anemia, diabetes, hyperlipidemia, hypertension, prior hysterectomy, history of gastric ulcers, irritable bowel, chronic pancreatitis, former tobacco abuse. Patient presented to the emergency department chief complaint of abdominal pain to her epigastric, left lower quadrant, and right lower quadrant areas. Patient stated this pain has been present for the past couple months but 2 days prior to presentation, the pain awoke her from sleep and was described as sharp and stabbing and aggravated with eating. She states the pain was relieved with flatus. Her epigastric pain had been present for 7 days prior to presentation was described as gnawing, burning, and sharp at times. She states this epigastric pain was worsened with eating and relieved with belching. She denied fevers, nausea or vomiting. Patient also admits to diarrhea and constipation intermittently. Patient denies any melena or hematochezia. Workup in the emergency department revealing anemia. Chest x-ray negative. Abdominal and pelvic CT revealing AAA with outpatient follow-up recommended. Abdominal pelvic CT also revealing chronic pancreatitis and diverticulosis without acute diverticulitis. Patient was admitted to the hospitalist service for further evaluation and management. Her pain was controlled with IV morphine. GI was brought on board who performed an EGD which found mild gastritis. GI also performed a colonoscopy that revealed diverticulosis and the recommendation was to initiate fiber supplements. Given her severe epigastric pain, she was given 2 weeks worth of Carafate at disposition. She was able tolerate a regular diet prior to discharge. She continued to have abdominal pain on day of discharge however was no longer cramping and it was tolerable. She stated that she had pain medicine at home that she could use. She also initially felt weak however on day of discharge, she was able to ambulate about her room without any difficulties. Her anemia remained stable and she did not require a transfusion. Her anemia started the beginning of this month and etiology is yet to be determined. Her iron, B12, and folate levels were all normal. Her primary care provider started her on iron supplementation last week that she states it made her constipated. She was started on a fiber supplement during this admission. Urinalysis was negative. Her primary care provider has already set her up with hematology Dr. Mitchell and she has an appointment for him on 01/16/17 at 2:50 PM. She also has appointment with her primary care provider next week. She was admitted and observed over the course of 3 days and she remained hemodynamically stable yet still anemic. She was discharged home in stable condition with close outpatient follow-up recommended. ITS Impressions Chest X-Ray 01/03/17 17:09 IMPRESSION: No acute process. D/ / Inna Marroquin MD / Inna Marroquin MD Interpreting Provider: Inna Marroquin MD Abdomen/Pelvis CT 01/03/17 17:14 IMPRESSION: Fusiform infrarenal abdominal aortic aneurysm measuring 4.3 x 4.2 cm. Recommend follow up based on AAA recommendations below. No acute intra-abdominal or pelvic process is identified. Simple appearing left renal cyst. Pancreatic calcifications likely related to chronic pancreatitis. Diverticulosis without acute diverticulitis. RECOMMENDATIONS: Managing Abdominal Aortic Aneurysms 2.6-2.9 cm: 5 year follow up. 3.0-3.4 cm: 3 year follow up 3.5-3.9 cm: 1 year follow up. 4.0-4.4 cm: 1 year follow up. Recommend vascular consultation. 4.5-5.4 cm: 6 month follow up. Recommend vascular consultation. Greater than or equal to 5.5 cm: Referral to vascular surgeon. Reference: Ama et al. The care of patients with an abdominal aortic aneurysm: The Society of Vascular Surgery practice guidelines. Journal of Vascular Surgery. Vol 50, Number 85. Khosa et al. Managing Incidental Findings on Abdominal and Pelvic CT and MRI, Part 2: White Paper of the ACR Incidental Findings Committee II on Vascular Findings. J Am Bessie Radiol 2013;10:[id number] D/ / Armando Lange MD / Armando Lange MD Interpreting Provider: Armando Lange MD impression: Normal esophagus. Gastritis. Biopsied. Normal examined duodenum. Colonoscopy impression: Diverticulosis in the sigmoid colon. The distal rectum and anal verge of normal on retroflexion view. Recommendation: Use fiber. - Time Spent with Patient Total time spent providing and/or coordinating discharge services: - Constitutional Vitals: Temp Pulse Resp BP Pulse Ox 98.0 F 74 15 175/66 92 01/05/17 15:37 01/05/17 15:37 01/05/17 15:37 01/05/17 15:37 01/05/17 15:37 General appearance: Present: A&O X 3, pleasant, no acute distress, answers questions appropriately - Head Head exam: Present: atraumatic, normocephalic - Eye Eye exam: Present: PERRL, conjuntiva pink, sclera anicteric Pupils: Present: PERRL - Neck Neck exam general surgery: Present: supple, trachea midline. Absent: lymphadenopathy - Respiratory Respiratory exam: Present: CTAB. Absent: accessory muscle use, rales, respiratory distress, rhonchi, wheezes - Cardiovascular Cardiovascular exam: Present: RRR, +S1, +S2. Absent: diastolic murmur, gallop, rubs, systolic murmur - GI/Abdominal GI/Abdominal exam: Present: normal bowel sounds, soft, tenderness, no peritoneal signs. Absent: distended - Extremities Exam Extremities exam: Present: warm, radial pulses palpable and symetrical. Absent : calf tenderness, cyanotic, pedal edema - Neurological Exam Neurological exam: Present: alert, CN II-XII intact, normal gait, oriented X3, no focal deficits, strengths equal and symetr throughout. Absent: pronater drift, facial droop, speech deficit - Skin Skin exam: Present: dry, intact, pallor, warm
== END 2017-01-05 17:28 | disposition home or self-care (01) ==
LOC: 3BNU 17:05 → EMEROO 17:05 → 3BNU 20:34
PROVIDERS: ADMIT Nurse Practitioner Family; ATTEND Nurse Practitioner Family
PROC: ENDOEBX (2017-01-05 10:30)

== ENCOUNTER 2017-05-22 15:47 | Inpatient (IN) ==
[2017-05-22 17:16] LABS: Bilirubin,Urine Negative (Negative); Blood,Urine Negative (Negative); Clarity,Urine Clear (Clear); Color,Urine Yellow (Yellow); Glucose,Urine (UA) Normal (Normal); Ketones,Urine Negative (Negative); Leukocyte Esterase,Urine Small (Negative); Nitrite,Urine Negative (Negative); Protein,Urine Negative (Neg-Trace); Specific Gravity,Urine 1.007 (1.010-1.025); Urobilinogen,Urine Normal (Normal)
[2017-05-22 17:40] LABS: Bacteria,Urine Few per hpf (None-Few); Hyaline Casts,Urine None Seen per lpf (None-Few); RBC,Urine 0-3 per hpf (0-3); Renal Epithelial Cells,Urine Few per hpf (None-Few); Squamous Epithelial Cell,Urine Few per lpf (None-Few)
[2017-05-22 19:31] LABS: Basophils # 0.1 K/mcL (0.0-0.2); Basophils % 0.8 %; Eosinophils # 0.1 K/mcL (0.0-0.6); Eosinophils % 0.9 %; Hematocrit 39.3 % (35.3-44.9); Hemoglobin 13.2 g/dL (11.5-15.4); Immature Granulocytes % 0.3 % (0-4); Lymphocytes % 30.4 %; Mean Corpuscular HGB Conc 33.6 g/dL (31.6-35.5); Mean Corpuscular Hemoglobin 29.6 pg (28.0-33.3); Mean Corpuscular Volume 88.1 fL (83.0-100.0); Mean Platelet Volume 9.4 fL (9.4-12.4); Monocytes # 0.4 K/mcL (0.0-1.3); Monocytes % 6.2 %; Platelet Count 232 K/mcL (140-400); Red Blood Count 4.46 M/mcL (3.82-4.97); Red Cell Distribution Width 13.7 % (11.5-14.5); Segmented Neutrophils % 61.4 %
[2017-05-22] MEDS ORDERED: 0.9 % Sodium Chloride 1,000 ML IVC ONE (19:32)
[2017-05-22] MEDS ORDERED: *HR* HYDROmorphone (PF) 1 MG/ML SYRINGE IVP ONE ×2 (19:32→21:49)
[2017-05-22] MEDS ORDERED: Ondansetron 4 MG/2 ML VIAL IVP ONE (19:32)
--- NOTE | 2017-05-22 19:36 | Emergency Department Note ---
Disposition Clinical Impression: Abdominal aneurysm, Generalized weakness Hypertension Qualifiers: Hypertension type: unspecified Qualified Code(s): I10 - Essential (primary) hypertension Abdominal pain Qualifiers: Abdominal location: generalized Qualified Code(s): R10.84 - Generalized abdominal pain Disposition: Admitted As Inpatient Condition: Fair Time of Disposition: 21:13 Weakness HPI - General Chief complaint: ED Weakness Stated complaint: weak// light headed// anemic Time Seen by Provider: 05/22/17 16:12 Source: patient Mode of arrival: ambulatory Limitations: no limitations Nursing Notes Reviewed: Yes Vital Signs Reviewed: Yes - History of Present Illness HPI Narrative: 76-year-old female with a history of diabetes, hypertension presents for evaluation of generalized weakness and lightheadedness. Patient states symptoms started approximately couple weeks ago. Notes that she felt sick with a possible chest cold last week. Patient states that she just does not feel well. Notes chronic abdominal discomfort over the past several months. Denies a nausea or vomiting. Reports some diarrhea as well as constipation. No dysuria or hematuria. No falls. Patient states that her abdominal discomfort is across her lower abdomen. No radiation symptoms. Reports that she does have history of chronic anemia and was admitted back in December and received iron transfusions. Denies any blood in her stool or dark tarry stools. States she had a colonoscopy back in December that was unremarkable. Pain Scale: 7 - Related Data Home Medications Medication Instructions Recorded Confirmed Cholecalciferol (D-3) [Vitamin D] 1,000 unit PO DAILY 01/03/17 05/22/17 Ferrous Sulfate 325 mg PO BIDWM 01/03/17 05/22/17 Gabapentin [Neurontin] 800 mg PO TID 01/03/17 05/22/17 HYDROcodone/Acet 5/325 mg [[place] 1 tab PO TID PRN 01/03/17 05/22/17 5-325 mg] Lisinopril/Hydrochlorothiazide 0.5 each PO BID 01/03/17 05/22/17 [Zestoretic 20-12.5 mg Tablet] Metformin HCl [Metformin HCl ER] 500 mg PO BID 01/03/17 05/22/17 [place]-3/Dha/Epa/Fish Oil [[place]-3 1,000 mg PO DAILY 01/03/17 05/22/17 Fish Oil 1,000 mg Sfgl] Omeprazole [PriLOSEC] 20 mg PO BIDAC 01/03/17 05/22/17 Pravastatin Sodium [Pravachol] 40 mg PO HS 01/03/17 05/22/17 Tamsulosin [Flomax] 0.4 mg PO DAILY 01/03/17 05/22/17 Ascorbate Calcium [Vitamin C] 500 mg PO DAILY 01/16/17 05/22/17 Calcium Carbonate [Calcium] 500 mg PO DAILY 01/16/17 05/22/17 Docusate [Colace] 100 mg PO BID PRN 01/16/17 05/22/17 Simethicone [Gas-X] 80 mg PO QID PRN 01/16/17 05/22/17 Lidocaine OINT 1 appl TP AD 05/22/17 05/22/17 Previous Rx's Medication Instructions Recorded Sucralfate [Carafate] 1 gm PO TID #42 tablet 01/05/17 Allergies Allergy/AdvReac Type Severity Reaction Status Date / Time No Known Allergies Allergy Verified 01/16/17 15:37 All systems ED: reviewed and negative except as stated. Constitutional: Reports: as per HPI. Denies: fever Eyes: Reports: as per HPI ENT ED: Reports: as per HPI Cardiovascular: Reports: as per HPI, chest pain Respiratory: Reports: as per HPI. Denies: dyspnea Gastrointestinal: Reports: as per HPI, abdominal pain, diarrhea, constipation. Denies: nausea, vomiting Genitourinary: Reports: as per HPI Past Medical History - Past Medical History Medical history: Reports: diabetes, hyperlipidemia, hypertension, other Surgical history: Reports: hysterectomy Psychiatric history: Reports: no psych history - Social History Smoking Status: Former smoker Smokeless Tobacco Status: No Alcohol use: Reports: none Drug use: Reports: none Physical Exam - General Limitations: no limitations General appearance: alert - Head Head exam: atraumatic, normocephalic, normal inspection - Eye Eye exam: Present: normal appearance, PERRL, EOMI - ENT ENT exam: normal exam, mucous membranes moist - Neck Neck exam: Present: normal inspection, trachea midline - Chest Chest inspection: Present: normal inspection, symmetric chest wall rise - Respiratory Respiratory exam: Present: normal lung sounds bilaterally. Absent: respiratory distress - Cardiovascular Cardiovascular exam: Present: regular rate - Abdominal Exam Abdominal exam: Present: soft, tenderness (Moderate tenderness to light palpation in the lower abdomen and left lower quadrant.). Absent: guarding, rebound - Extremities Exam Extremities exam: Present: normal inspection. Absent: pedal edema - Back Exam Back exam: Present: normal inspection - Neurological Exam Neurological exam: Present: alert, oriented X3, CN II-XII intact - Expanded Neurological Exam Patient oriented to: Present: person, place, time Speech: Present: fluid speech Cranial nerves: EOM function (II, III, IV, ): Normal, facial sensation (V): Normal, facial palsy (VII): Normal, spinal accessory function (XI): Normal, tongue deviation (XII): Normal Motor strength - LUE: 5/5 Motor strength - RUE: 5/5 Motor strength - LLE: 5/5 Motor strength - RLE: 5/5 - Skin Skin exam: Present: warm, dry, intact, normal color Course Course Narrative: Patient seen and examined. Patient appears to be in no acute discomfort. Patient was noted be hypertensive with systolic pressure to 230s. Patient states that she took her blood pressure medication earlier this morning. Denies being noncompliant with medications. Patient will get basic lab work on EKG troponin as well as chest x-ray. Patient will also receive CT the abdomen and pelvis given her abdominal discomfort and prior surgery. - Reevaluation(s) Reevaluation #1: Hospitalist would like a CT angiogram of the abdomen. That order was placed. A hospital states that they will follow-up on the imaging. Time: 21:12 Reevaluation #2: Patient seen and examined. Patient denies any needs at this time. His abdominal exam is unchanged. States that the pain medicine seemed to help improve her pain. Explained plan of care. Time: 21:49 Vital Signs Temperature 97.9 F 05/22/17 16:41 Pulse Rate 68 05/22/17 16:41 Respiratory Rate 18 05/22/17 16:41 Blood Pressure 192/92 05/22/17 16:41 O2 Sat by Pulse Oximetry 99 05/22/17 16:41 Temperature 98.0 F 05/23/17 02:53 Pulse Rate 75 05/23/17 02:53 Respiratory Rate 17 05/23/17 02:53 Blood Pressure 129/54 05/23/17 02:53 O2 Sat by Pulse Oximetry 96 05/23/17 02:53 Oxygen Delivery Oxygen Delivery Room Air Weakness - MDM Narrative Medical decision making narrative: 76 yo female presents for evaluation of generalized weakness and abdominal pain. Patient has not been feeling well for the past couple weeks. Patient was found to be hypertensive on exam. States he has been taking her blood pressure medication as directed. Patient's abdominal exam does show some moderate tenderness. Patient initially had a CT and pelvis without contrast. Patient is a stable aneurysm. Patient's pain was addressed in the department with slight reduction in blood pressure. Patient was given hydralazine. So the hospitalist for admission. Patient will be admitted for generalized weakness and abdominal pain with hypertension. Patient's urinalysis shows 3-5 WBCs with no other signs of infection. Awaiting urine culture before starting any antibiotics. Patient's symptoms likely related to her blood pressure. Patient agrees with plan of care. - Lab Data Lab results reviewed: Yes I reviewed the patient's lab results. Result diagrams: 05/22/17 19:23 05/22/17 19:23 Lab Results 05/22/17 05/22/17 05/22/17 Range/Units 17:00 19:23 19:23 WBC 6.5 (4.3-11.1) K/mcL RBC 4.46 (3.82-4.97) M/mcL Hgb 13.2 (11.5-15.4) g/dL Hct 39.3 (35.3-44.9) % MCV 88.1 (83.0-100.0) fL MCH 29.6 (28.0-33.3) pg MCHC 33.6 (31.6-35.5) g/dL RDW 13.7 (11.5-14.5) % Plt Count 232 (140-400) K/mcL MPV 9.4 (9.4-12.4) fL Immature Gran % 0.3 (0-4) % Seg Neutrophils % 61.4 % Lymphocytes % 30.4 % Monocytes % 6.2 % Eosinophils % 0.9 % Basophils % 0.8 % Neutrophils # 4.0 (1.6-8.9) K/mcL Lymphocytes # 2.0 (0.6-4.6) K/mcL Monocytes # 0.4 (0.0-1.3) K/mcL Eosinophils # 0.1 (0.0-0.6) K/mcL Basophils # 0.1 (0.0-0.2) K/mcL Sodium 141 (136-145) mEq/L Potassium 4.7 H (3.5-4.5) mEq/L Chloride 106 (98-109) mEq/L Carbon Dioxide 28 (19-29) mEq/L BUN 11 (7-20) mg/dL Creatinine 0.73 (0.57-1.11) mg/dL Est GFR ( Amer) > 60 (> 60) Est GFR (Non-Af Amer) > 60 (> 60) BUN/Creatinine Ratio 15 (6-26) Glucose 95 (70-99) mg/dL POC Glucose (58-89) Calculated Osmolality 291 (280-300) Calcium 10.4 (8.6-10.8) mg/dL Total Bilirubin 0.5 (0.2-1.2) mg/dL Direct Bilirubin 0.2 (0.0-0.5) mg/dL Indirect Bilirubin 0.3 (0.0-1.2) mg/dL AST 14 (5-34) Units/L ALT 9 (0-55) Units/L Alkaline Phosphatase 67 (38-126) Units/L Troponin I (0-0.03) ng/mL Serum Total Protein 6.8 (6.0-8.3) g/dL Albumin 3.9 (3.5-5.0) g/dL Globulin 2.9 (2.4-3.5) g/dL Albumin/Globulin Ratio 1.3 (1.1-2.2) Urine Color Yellow (Yellow) Urine Clarity Clear (Clear) Urine pH 7.0 (5.0-8.0) pH Units Ur Specific [place] 1.007 L (1.010-1.025) Urine Protein Negative (Neg-Trace) mg/dL Urine Glucose (UA) Normal (Normal) mg/dL Urine Ketones Negative (Negative) mg/dL Urine Blood Negative (Negative) Urine Nitrite Negative (Negative) Urine Bilirubin Negative (Negative) Urine Urobilinogen Normal (Normal) mg/dL Ur Leukocyte Esterase Small H (Negative) Urine Microscopic RBC 0-3 (0-3) per hpf Urine Microscopic WBC 3-5 H (0-3) per hpf Ur Squamous Epith Cells Few (None-Few) per lpf Ur Renal Epithelial Cell Few (None-Few) per hpf Urine Bacteria Few (None-Few) per hpf Hyaline Casts None Seen (None-Few) per lpf Ur Culture Indicated? YES A (NO) 05/22/17 05/22/17 Range/Units 19:23 23:15 WBC (4.3-11.1) K/mcL RBC (3.82-4.97) M/mcL Hgb (11.5-15.4) g/dL Hct (35.3-44.9) % MCV (83.0-100.0) fL MCH (28.0-33.3) pg MCHC (31.6-35.5) g/dL RDW (11.5-14.5) % Plt Count (140-400) K/mcL MPV (9.4-12.4) fL Immature Gran % (0-4) % Seg Neutrophils % % Lymphocytes % % Monocytes % % Eosinophils % % Basophils % % Neutrophils # (1.6-8.9) K/mcL Lymphocytes # (0.6-4.6) K/mcL Monocytes # (0.0-1.3) K/mcL Eosinophils # (0.0-0.6) K/mcL Basophils # (0.0-0.2) K/mcL Sodium (136-145) mEq/L Potassium (3.5-4.5) mEq/L Chloride (98-109) mEq/L Carbon Dioxide (19-29) mEq/L BUN (7-20) mg/dL Creatinine (0.57-1.11) mg/dL Est GFR ( Amer) (> 60) Est GFR (Non-Af Amer) (> 60) BUN/Creatinine Ratio (6-26) Glucose (70-99) mg/dL POC Glucose 88 (58-89) Calculated Osmolality (280-300) Calcium (8.6-10.8) mg/dL Total Bilirubin (0.2-1.2) mg/dL Direct Bilirubin (0.0-0.5) mg/dL Indirect Bilirubin (0.0-1.2) mg/dL AST (5-34) Units/L ALT (0-55) Units/L Alkaline Phosphatase (38-126) Units/L Troponin I 0.00 (0-0.03) ng/mL Serum Total Protein (6.0-8.3) g/dL Albumin (3.5-5.0) g/dL Globulin (2.4-3.5) g/dL Albumin/Globulin Ratio (1.1-2.2) Urine Color (Yellow) Urine Clarity (Clear) Urine pH (5.0-8.0) pH Units Ur Specific [place] (1.010-1.025) Urine Protein (Neg-Trace) mg/dL Urine Glucose (UA) (Normal) mg/dL Urine Ketones (Negative) mg/dL Urine Blood (Negative) Urine Nitrite (Negative) Urine Bilirubin (Negative) Urine Urobilinogen (Normal) mg/dL Ur Leukocyte Esterase (Negative) Urine Microscopic RBC (0-3) per hpf Urine Microscopic WBC (0-3) per hpf Ur Squamous Epith Cells (None-Few) per lpf Ur Renal Epithelial Cell (None-Few) per hpf Urine Bacteria (None-Few) per hpf Hyaline Casts (None-Few) per lpf Ur Culture Indicated? (NO) - Radiology Data Radiology results reviewed: Yes I reviewed the patient's radiology results. Chest X-Ray 05/22/17 16:46 IMPRESSION: Negative portable chest. D/ / Arnav Cross MD / Arnav Cross MD Interpreting Provider: Arnav Cross MD Abdomen/Pelvis CT 05/22/17 19:37 IMPRESSION: 1. Limited study due to lack of IV contrast. 2. No definite acute findings within the abdomen and pelvis. 3. 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 Given differences in technique and measurement at the same level, the aneurysm is grossly similar in size and appearance compared to the prior study. 4. Sigmoid diverticulosis without evidence of diverticulitis. 5. The appendix is not well visualized but there are no secondary signs to suggest acute appendicitis. 6. Stable benign left adrenal adenoma. Stable mild nonspecific thickening in the right adrenal gland. 7. Coarse calcifications scattered throughout the pancreas, suggestive of chronic pancreatitis. 8. Tiny 3 mm hypodensity in the pancreatic tail, stable from the prior study, which is likely benign and a one year follow-up is recommended. 9. There is a 1.4 cm hypodense lesion in segment 3 of the liver with an associated coarse calcification. This is indeterminate but stable from the prior study and likely benign. Further evaluation could be performed with either a nonemergent ultrasound or CT scan with contrast. RECOMMENDATIONS: Managing Abdominal Aortic Aneurysms 2.6-2.9 cm: Every 5 years* 3.0-3.4 cm: Every 3 years. 3.5-3.9 cm: Every 1 year. 4.0-4.4 cm: Every 1 year. Recommend vascular consultation. 4.5-5.4 cm: Every 6 months. Recommend vascular consultation. Greater than or equal to 5.5 cm: Referral to vascular surgeon. *For abdominal aortas with maximum diameter of 2.6-2.9 cm meeting criteria for AAA (>50% of proximal normal segment). Reference: J Vasc Surg. 2009 Jun;50(4 Suppl):S2-49 Managing Incidental Cystic Pancreatic Mass (Asymptomatic Patient) Lesion <2 cm: MRI using pancreatic mass protocol in 1 year (6 months if younger patient) Lesion 2-3 cm: characterize with MRI using pancreatic mass protocol Lesion >3 cm: Surgical referral recommended Reference: Karyn et al. Managing Incidental Findings on Abdominal CT: White Paper of the ACR Incidental Findings Committee. J Am Bessie Radiol 2010;7:754-773 D/ / 05/22/2017 20:52:02 Jarocho Chow MD / [facility] Interpreting Provider: Jarocho Chow MD - EKG Data EKG attestation: Yes I reviewed and interpreted this EKG. EKG shows normal: sinus rhythm Rate: normal Rhythm: NSR [place]/QRS: normal Q waves: aVR, v1 T wave inversions noted in: aVR Interpretation: no acute changes S.B.A.R. - S.B.A.RHanna Situation: Demographics Background: Presenting Complaint Assessment: Vital Signs, Course and respsone to treatment, Patient/Family Expectation Recommendation: Barrier(s) to disposition, Recommendation based on pending studies, treatments, or consults S.B.A.RHanna Report Given to: Dr. Sinai DimasBHannaATiesha Repor Time: 21:02 Attestation Statement - Attestation Attestation: I, Marcello Valladares, examined this patient and my medical decision-making was reviewed with the PROMOTION OFFICER/PA/Advanced Practice Nurse/Resident Physician. I agree with the documented findings, disposition and treatment plan as described except to the extent set forth below. 76-year-old female presents to emergency department with concerns of weakness and lightheadedness. Patient states that she has had increasing symptoms over the past 1-2 weeks. Evaluation in emergency Department the patient has a significantly elevated blood pressure. She does report generalized abdominal pain which is worse in the epigastrium. Patient denies fever, chills, vomiting , diarrhea, rash, palpitations. EKG shows normal sinus rhythm with a rate of 71 without evidence of acute STEMI. She is given hydralazine in the emergency Department for control of her blood pressure. She has no acute neurologic deficits on exam. Urinalysis negative for urinary tract infection. Patient will be admitted to the hospital for further care and evaluation of her elevated blood pressure and generalized weakness.
[2017-05-22 19:44] LABS: BUN/Creatinine Ratio 15 (6-26); Blood Urea Nitrogen 11 mg/dL (7-20); Calcium 10.4 mg/dL (8.6-10.8); Carbon Dioxide 28 mEq/L (19-29); Chloride 106 mEq/L (98-109); Glucose 95 mg/dL (70-99); Osmolality,Calculated 291 (280-300); Potassium 4.7 mEq/L (3.5-4.5); Sodium 141 mEq/L (136-145); eGFR For African Americans > 60 (> 60); eGFR For Non-African Americans > 60 (> 60)
[2017-05-22 20:05] LABS: Alanine Aminotransferase 9 Units/L (0-55); Albumin 3.9 g/dL (3.5-5.0); Albumin/Globulin Ratio 1.3 (1.1-2.2); Alkaline Phosphatase 67 Units/L (38-126); Aspartate Amino Transferase 14 Units/L (5-34); Bilirubin,Direct 0.2 mg/dL (0.0-0.5); Bilirubin,Indirect 0.3 mg/dL (0.0-1.2); Bilirubin,Total 0.5 mg/dL (0.2-1.2); Globulin 2.9 g/dL (2.4-3.5); Total Protein 6.8 g/dL (6.0-8.3)
[2017-05-23] MEDS ORDERED: Dextrose Gel 15 GM PO PRN ×2 (00:15)
[2017-05-23] MEDS ORDERED: D5% in Water 1,000 ML IVC PRN (00:15)
[2017-05-23] MEDS ORDERED: *HR* Dextrose 50 % in Water (Syg) 50 ML SYRINGE IVP PRN (00:15)
[2017-05-23] MEDS ORDERED: MOM Conc 10 ML UD.LIQ PO PRN (00:16)
[2017-05-23] MEDS ORDERED: Acetaminophen 325 MG TABLET PO PRN (00:16)
[2017-05-23] MEDS ORDERED: Naloxone 0.4 MG/ML INJ IVP PRN (00:16)
[2017-05-23] MEDS ORDERED: Albuterol 2.5 MG/3 ML NEBULIZER IH PRN (00:21)
[2017-05-23] MEDS: *HR* HYDROcodone/Acet 5/325 mg TABLET PO PRN ×2 (00:55→08:55)
[2017-05-23] MEDS: Insulin LISPRO 300 UNITS/3 ML VIAL SQ SCH ×4 (01:03→16:13)
[2017-05-23] MEDS: Lidocaine OINT 35.44 GM TUBE TP SCH ×2 (01:06→23:49)
[2017-05-23] MEDS: 0.9 % Sodium Chloride 1,000 ML IVC SCH ×3 (01:48→16:11)
[2017-05-23] MEDS: Lisinopril-HCTZ 20-12.5mg TABLET PO SCH ×3 (01:55→20:48)
[2017-05-23] MEDS: Gabapentin 400 MG CAPSULE PO SCH ×4 (01:56→20:47)
--- NOTE | 2017-05-23 03:03 | Internal Med History&Physical ---
Date of Encounter: 05/23/17 Time of Encounter: 22:00 Assessment and Plan (1) Hypertensive urgency Current visit: Yes Status: Acute IV hydralazine when necessary decide home medication is started patient will be on telemetry optimal blood pressure control is warranted considering she has AAA plan discussed with patient (2) UTI (urinary tract infection) Current visit: Yes Status: Acute UA is positive though patient is asymptomatic cultures pending at IV Rocephin Qualifiers: Urinary tract infection type: site unspecified Hematuria presence: without hematuria Qualified Code(s): N39.0 - Urinary tract infection, site not specified (3) Hyperkalemia Current visit: Yes Status: Acute IV fluid and it rechecked potassium in the morning (4) Abdominal pain Current visit: Yes Status: Acute Generalized abdominal pain without any leukocyte count and abdominal CT with contrast is negative. She may have UTI. She has history of irritable bowel syndrome. I have added PPI and would like to observe and see how her symptoms resolve in next 24 hours. IV fluid added beside pain control. Qualifiers: Abdominal location: generalized Qualified Code(s): R10.84 - Generalized abdominal pain (5) Diabetes Current visit: Yes Status: Chronic Accu-Chek 4 times a day with sliding scale coverage daily Qualifiers: Diabetes mellitus type: type 2 Diabetes mellitus complication status: with unspecified complications Diabetes mellitus terminologist insulin use: without detention use Qualified Code(s): E11.8 - Type 2 diabetes mellitus with unspecified complications (6) AAA (abdominal aortic aneurysm) Current visit: Yes Status: Chronic A contrast CT abdomen done in ER which showed 4.7 x 4.5 cm infrarenal abdominal aortic aneurysm without any dissection at 6 monthly follow-up is recommended. Optimal blood pressure control is warranted. Qualifiers: Presence of rupture: without rupture Qualified Code(s): I71.4 - Abdominal aortic aneurysm, without rupture Internal Medicine - H&P: HPI Chief complaint: Not feeling well/fatigue Admitted From: Home Plans for Post Hospital Care: Home History of present illness: Ms. Tillman is a 76-year-old female with a history of diabetes, hypertension, dyslipidemia , COPD, AAA presents for evaluation of generalized weakness and lightheadedness. Patient states symptoms started approximately couple weeks ago. She says that she felt sick with a possible chest cold last week. Patient states that she just does not feel well. She denies any headache syncope chest pain cough shortness of breath palpitation. It was noted in the ER that her blood pressure is quite high and she admits that Despite the fact that she takes her blood pressure medicine quite regularly her blood pressure fluctuates quite a bit Patient is also complaining of generalized abdominal pain more in the epigastrium however she also has history of irritable bowel disease. She denies any nausea vomiting diarrhea dysuria urgency frequency hematuria hematochezia or hematemesis melena. Abdominal pain is rather diffuse but more in the lower abdomen normal other hepatic particular radiation nausea or aggravating or relieving factors. Reports that she does have history of chronic anemia and was admitted back in December and received iron transfusions but now her hemoglobin is 13. Denies any blood in her stool or dark tarry stools. States she had a colonoscopy back in December that was unremarkable. Past Med Surg Social Fam HX - Past Medical History Medical history: diabetes, hyperlipidemia, hypertension, other Psychiatric history: no psych history - Past Surgical History Surgical History: hysterectomy - Social History Smoking Status: Former smoker Smokeless Tobacco Status: No Alcohol use: none Drug use: none - Family History Father Living Status: Age at : 45 Cause of : [place] Hx Family Cardiac Disorders: Yes Mother Living Status: Age at : 79 Cause of : heart disease Hx Family Cardiac Disorders: Yes Hx Family Endocrine Disorder: Yes Brother Living Status: Hx Family Cardiac Disorders: Yes ([place]) Internal Medicine - H&P: Meds Cholecalciferol (D-3) [Vitamin D] 1,000 unit PO DAILY 01/03/17 [History] Ferrous Sulfate 325 mg PO BIDWM 01/03/17 [History] Gabapentin [Neurontin] 800 mg PO TID 01/03/17 [History] HYDROcodone/Acet 5/325 mg [[place] 5-325 mg] 1 tab PO TID PRN 01/03/17 [History] Lisinopril/Hydrochlorothiazide [Zestoretic 20-12.5 mg Tablet] 0.5 each PO BID [History] Metformin HCl [Metformin HCl ER] 500 mg PO BID 01/03/17 [History] [place]-3/Dha/Epa/Fish Oil [[place]-3 Fish Oil 1,000 mg Sfgl] 1,000 mg PO DAILY [History] Omeprazole [PriLOSEC] 20 mg PO BIDAC 01/03/17 [History] Pravastatin Sodium [Pravachol] 40 mg PO HS 01/03/17 [History] Tamsulosin [Flomax] 0.4 mg PO DAILY 01/03/17 [History] Sucralfate [Carafate] 1 gm PO TID #42 tablet 01/05/17 [Rx] Ascorbate Calcium [Vitamin C] 500 mg PO DAILY 01/16/17 [History] Calcium Carbonate [Calcium] 500 mg PO DAILY 01/16/17 [History] Docusate [Colace] 100 mg PO BID PRN 01/16/17 [History] Simethicone [Gas-X] 80 mg PO QID PRN 01/16/17 [History] Lidocaine OINT 1 appl TP AD 05/22/17 [History] 3 Allergy/AdvReac Type Severity Reaction Status Date / Time No Known Allergies Allergy Verified 01/16/17 15:37 All Systems PM: A 10-system review of systems was performed and is negative for pertinent findings except as documented above in the HPI. - Constitutional Constitutional: no chills, no fever(s), no night sweats - EENT Eyes: no change in vision, no discharge, no pain, no photophobia Ears: no ear discharge, no ear pain, no tinnitus Nose, mouth and throat: no dysphagia, no nasal discharge, no neck pain, no sore throat - Cardiovascular Cardiovascular ROS IM: no chest pain, no diaphoresis, no dyspnea, no lightheadedness, no palpitations, no syncope - Respiratory Respiratory: no cough, no dyspnea, no wheezing, no excessive phlegm production - Gastrointestinal Gastrointestinal: no abdominal pain, no diarrhea, no hematemesis, no hematochezia, no melena, no nausea, no vomiting - Genitourinary Genitourinary: no change in urinary stream, no dysuria, no flank pain, no hematuria - Musculoskeletal Musculoskeletal ROS IM: no numbness, no tingling - Integumentary Integumentary IM: no rash, no unusual bruising - Neurological Neurological ROS: no confusion, no convulsions, no focal weakness, no numbness, no tingling, no tremor(s) - Hematologic/Lymphatic Hematologic/Lymphatic: no easy bruising - Constitutional Vitals: Temp Pulse Resp BP Pulse Ox 98.0 F 75 17 129/54 96 05/23/17 02:53 05/23/17 02:53 05/23/17 02:53 05/23/17 02:53 05/23/17 02:53 General appearance: Present: cooperative, A&O X 3, pleasant, no acute distress, answers questions appropriately - Head Head exam: Present: atraumatic, normocephalic - Eye Eye exam: Present: PERRL, conjuntiva pink, sclera anicteric Pupils: Present: PERRL - Neck Neck exam general surgery: Present: supple, trachea midline. Absent: lymphadenopathy - Respiratory Respiratory exam: Present: CTAB. Absent: accessory muscle use, rales, rhonchi, wheezes - Cardiovascular Cardiovascular exam: Present: RRR, +S1, +S2. Absent: diastolic murmur, gallop, rubs, systolic murmur - GI/Abdominal GI/Abdominal exam: Present: normal bowel sounds, soft, no peritoneal signs. Absent: distended, tenderness - Extremities Exam Extremities exam: Present: warm, radial pulses palpable and symmetrical. Absent : calf tenderness, cyanotic, pedal edema - Neurological Exam Neurological exam: Present: CN II-XII intact, oriented X3, no focal deficits. Absent: pronater drift, facial droop, speech deficit - Skin Skin exam: Present: dry, intact Internal Med - H&P Results - Labs CBC & Chem 7: 05/22/17 19:23 05/22/17 19:23
[2017-05-23 05:29] LABS: Basophils % 0.7 %; Eosinophils % 0.2 %; Hematocrit 35.1 % (35.3-44.9); Hemoglobin 11.7 g/dL (11.5-15.4); Immature Granulocytes % 0.5 % (0-4); Lymphocytes % 15.9 %; Mean Corpuscular HGB Conc 33.3 g/dL (31.6-35.5); Mean Corpuscular Hemoglobin 29.5 pg (28.0-33.3); Mean Corpuscular Volume 88.4 fL (83.0-100.0); Mean Platelet Volume 9.3 fL (9.4-12.4); Monocytes # 0.3 K/mcL (0.0-1.3); Monocytes % 4.9 %; Neutrophils # 4.8 K/mcL (1.6-8.9); Platelet Count 202 K/mcL (140-400); Red Blood Count 3.97 M/mcL (3.82-4.97); Red Cell Distribution Width 13.9 % (11.5-14.5); Segmented Neutrophils % 77.8 %
[2017-05-23 05:52] LABS: Alanine Aminotransferase 7 Units/L (0-55); Albumin 3.2 g/dL (3.5-5.0); Albumin/Globulin Ratio 1.1 (1.1-2.2); Alkaline Phosphatase 57 Units/L (38-126); Aspartate Amino Transferase 11 Units/L (5-34); BUN/Creatinine Ratio 14 (6-26); Blood Urea Nitrogen 9 mg/dL (7-20); Calcium 9.2 mg/dL (8.6-10.8); Carbon Dioxide 28 mEq/L (19-29); Chloride 106 mEq/L (98-109); Globulin 2.8 g/dL (2.4-3.5); Glucose 112 mg/dL (70-99); Osmolality,Calculated 289 (280-300); Potassium 3.8 mEq/L (3.5-4.5); Sodium 140 mEq/L (136-145); eGFR For African Americans > 60 (> 60); eGFR For Non-African Americans > 60 (> 60)
[2017-05-23 05:53] LABS: Bilirubin,Total < 0.3 mg/dL (0.2-1.2)
[2017-05-23] MEDS: Sucralfate 1 GM TABLET PO SCH ×3 (08:44→20:46)
[2017-05-23] MEDS: Ascorbic Acid 500 MG TABLET PO SCH (08:44)
[2017-05-23] MEDS: Cholecalciferol (D-3) 1,000 UNIT TABLET PO SCH (08:44)
[2017-05-23] MEDS: OMEGA FISH OIL PO SCH (08:45)
[2017-05-23] MEDS: Acetaminophen/Butalbital/CaffeineTABLET PO PRN (13:31)
--- NOTE | 2017-05-23 15:02 | Electrocardiograph Report ---
[place] [id number] Test Date: 2017-05-22 Pat Name: Silva Tillman Department: 105 Room: 3B43 Gender: F Injection Molder: : 1940 Requested By: Kd Gastelum Order Number: [id number] Reading MD: Angella Lubin Measurements Intervals [place] Rate: 71 P: 71 MN: 164 QRS: 46 QRSD: 90 T: 56 QT: 385 QTc: 407 Interpretive Statements SINUS RHYTHM NONSPECIFIC T-WAVE ABNORMALITY Electronically Signed On 05-23-2017 15:00:19 EDT by Angella Lubin
--- NOTE | 2017-05-23 17:34 | Internal Med Progress Note ---
Date of Encounter: 05/23/17 Time of Encounter: 11:50 - Assessment and plan (1) Hypertensive urgency Current Visit: Yes Status: Acute Assessment and plan: Improved blood pressure. Continue lisinopril with hydrochlorothiazide. On IV hydralazine. We will add amlodipine orally to control blood pressure better. (2) Abdominal pain Current Visit: Yes Status: Acute Assessment and plan: Tender to palpation. No clear abnormalities identified on CT scan. Patient could be having underlying gastritis. Has been placed on omeprazole. Will start clear liquids today and if patient has worsening of symptoms, will consult GI for possible EGD. Qualifiers: Abdominal location: epigastric Qualified Code(s): R10.13 - Epigastric pain (3) AAA (abdominal aortic aneurysm) Current Visit: Yes Status: Chronic Assessment and plan: We will arrange for outpatient follow-up with cardiovascular surgery Qualifiers: Presence of rupture: without rupture Qualified Code(s): I71.4 - Abdominal aortic aneurysm, without rupture (4) Diabetes Current Visit: Yes Status: Chronic Assessment and plan: Blood sugars are well controlled. Continue current insulin regimen Qualifiers: Diabetes mellitus type: type 2 Diabetes mellitus complication status: with unspecified complications Diabetes mellitus [place] dock insulin use: without care home use Qualified Code(s): E11.8 - Type 2 diabetes mellitus with unspecified complications (5) Hyperkalemia Current Visit: Yes Status: Resolved Assessment and plan: This has resolved (6) UTI (urinary tract infection) Current Visit: Yes Status: Acute Assessment and plan: Urinalysis showed 3-5 WBC. Patient is alert asymptomatic. We will complete shot course of treatment given her age Qualifiers: Urinary tract infection type: acute cystitis Hematuria presence: without hematuria Qualified Code(s): N30.00 - Acute cystitis without hematuria (7) Generalized weakness Current Visit: Yes Status: Acute Assessment and plan: We will consult physical therapy. Patient does not wish to go to rehabilitation. Will also check orthostatic blood pressure and patient is able to tolerate it. - Subjective Interval history: Patient complains of headache. It had improved earlier today but seems to be relapsing. Denies any blurred vision. Feels very weak. No chest pain or shortness of breath. Has some epigastric abdominal pain. No dizziness while lying down. She has not been up today. - Constitutional Vitals: Temp Pulse Resp BP Pulse Ox 97.6 F 61 15 158/75 97 05/23/17 15:05/23/17 15:05/23/17 15:05/23/17 15:05/23/17 15:09 General appearance: Present: cooperative, mild distress, A&O X 3, pleasant, answers questions appropriately - Eye Eye exam: Present: EOMI, PERRL, conjuntiva pink, sclera anicteric - Respiratory Respiratory exam: Present: CTAB. Absent: accessory muscle use, rales, rhonchi, wheezes - Cardiovascular Cardiovascular exam: Present: RRR, +S1, +S2. Absent: diastolic murmur, gallop, rubs, systolic murmur - GI/Abdominal GI/Abdominal exam: Present: normal bowel sounds, soft, tenderness (Epigastric), no peritoneal signs. Absent: distended - Extremities Exam Extremities exam: Present: warm, radial pulses palpable and symmetrical. Absent : calf tenderness, cyanotic, pedal edema - Neurological Exam Neurological exam: Present: alert, CN II-XII intact, oriented X3, no focal deficits. Absent: facial droop, speech deficit - Skin Skin exam: Present: dry, intact Internal Medicine: Result - Labs CBC & Chem 7: 05/23/17 05:12 05/23/17 05:12 Labs: Short CBC 05/23/17 Range/Units 05:12 WBC 6.1 (4.3-11.1) K/mcL Hgb 11.7 D (11.5-15.4) g/dL Hct 35.1 L (35.3-44.9) % Plt Count 202 (140-400) K/mcL Neutrophils # 4.8 (1.6-8.9) K/mcL BMP 05/23/17 05:12 Sodium 140 Potassium 3.8 Chloride 106 Carbon Dioxide 28 BUN 9 Creatinine 0.63 Glucose 112 H Calcium 9.2 Liver Function 05/23/17 Range/Units 05:12 Total Bilirubin < 0.3 (0.2-1.2) mg/dL AST 11 (5-34) Units/L ALT 7 (0-55) Units/L Alkaline Phosphatase 57 (38-126) Units/L Albumin 3.2 L (3.5-5.0) g/dL Consult Discharge Plan - Plan Referrals: Attila Alvarez MD [Primary Care Provider] - 05/29/17 2:00 pm
[2017-05-23] MEDS: *HR* Heparin 5,000 UNIT/ML VIAL SQ SCH (18:09)
[2017-05-23] MEDS: Ondansetron 4 MG/2 ML VIAL IVP PRN (20:55)
[2017-05-24] MEDS: 0.9 % Sodium Chloride 1,000 ML IVC SCH (01:22)
[2017-05-24] MEDS: *HR* Heparin 5,000 UNIT/ML VIAL SQ SCH (05:51)
[2017-05-24] MEDS: Insulin LISPRO 300 UNITS/3 ML VIAL SQ SCH ×3 (07:46→15:50)
[2017-05-24] MEDS: *HR* HYDROcodone/Acet 5/325 mg TABLET PO PRN ×2 (09:12→16:29)
[2017-05-24] MEDS: Cholecalciferol (D-3) 1,000 UNIT TABLET PO SCH (09:13)
[2017-05-24] MEDS: Sucralfate 1 GM TABLET PO SCH ×2 (09:13→16:24)
[2017-05-24] MEDS: Lisinopril-HCTZ 20-12.5mg TABLET PO SCH (09:13)
[2017-05-24] MEDS: Ascorbic Acid 500 MG TABLET PO SCH (09:16)
[2017-05-24] MEDS: Gabapentin 400 MG CAPSULE PO SCH ×2 (09:17→16:24)
[2017-05-24] MEDS: OMEGA FISH OIL PO SCH (09:18)
[2017-05-24] MEDS: Acetaminophen/Butalbital/CaffeineTABLET PO PRN (12:49)
[2017-05-24] MEDS: Ondansetron 4 MG/2 ML VIAL IVP PRN (13:00)
[2017-05-24 15:40] VITALS: BP 127/58
--- NOTE | 2017-05-24 16:40 | Discharge Summary ---
Date of Encounter: 05/25/17 Time of Encounter: 16:36 - Discharge Diagnosis (1) Hypertensive urgency Priority: Primary Status: Acute (2) Abdominal pain Priority: Secondary Status: Acute Qualifiers: Abdominal location: epigastric Qualified Code(s): R10.13 - Epigastric pain (3) AAA (abdominal aortic aneurysm) Priority: Secondary Status: Chronic Qualifiers: Presence of rupture: without rupture Qualified Code(s): I71.4 - Abdominal aortic aneurysm, without rupture (4) Diabetes Priority: Secondary Status: Chronic Qualifiers: Diabetes mellitus type: type 2 Diabetes mellitus complication status: with unspecified complications 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 operator insulin use: without intermediate use Qualified Code(s): E11.8 - Type 2 diabetes mellitus with unspecified complications (5) Hyperkalemia Priority: Secondary Status: Resolved (6) UTI (urinary tract infection) Priority: Secondary Status: Acute Qualifiers: Urinary tract infection type: acute cystitis Hematuria presence: without hematuria Qualified Code(s): N30.00 - Acute cystitis without hematuria (7) Generalized weakness Priority: Secondary Status: Acute (8) Intractable headache Priority: Secondary Status: Acute Qualifiers: Headache type: tension-type Headache chronicity pattern: acute headache Qualified Code(s): G44.201 - Tension-type headache, unspecified, intractable - Discharge Medications Prescriptions: Acetaminophen/Butalbital/Caffe [Fioricet] 1 each PO Q6HR PRN #15 tab PRN Reason: Headache Metoprolol [Lopressor] 12.5 mg PO BID #30 tablet Sucralfate [Carafate] 1 gm PO TID #120 tablet Home Medications: Cholecalciferol (D-3) [Vitamin D] 1,000 unit PO DAILY 01/03/17 [History] Ferrous Sulfate 325 mg PO BIDWM 01/03/17 [History] Gabapentin [Neurontin] 800 mg PO TID 01/03/17 [History] HYDROcodone/Acet 5/325 mg [[place] 5-325 mg] 1 tab PO TID PRN 01/03/17 [History] Lisinopril/Hydrochlorothiazide [Zestoretic 20-12.5 mg Tablet] 0.5 each PO BID [History] Metformin HCl [Metformin HCl ER] 500 mg PO BID 01/03/17 [History] [place]-3/Dha/Epa/Fish Oil [[place]-3 Fish Oil 1,000 mg Sfgl] 1,000 mg PO DAILY [History] Omeprazole [PriLOSEC] 20 mg PO BIDAC 01/03/17 [History] Pravastatin Sodium [Pravachol] 40 mg PO HS 01/03/17 [History] Tamsulosin [Flomax] 0.4 mg PO DAILY 01/03/17 [History] Ascorbate Calcium [Vitamin C] 500 mg PO DAILY 01/16/17 [History] Calcium Carbonate [Calcium] 500 mg PO DAILY 01/16/17 [History] Docusate [Colace] 100 mg PO BID PRN 01/16/17 [History] Simethicone [Gas-X] 80 mg PO QID PRN 01/16/17 [History] Lidocaine OINT 1 appl TP AD 05/22/17 [History] Acetaminophen/Butalbital/Caffe [Fioricet] 1 each PO Q6HR PRN #15 tab 05/24/17 [ Rx] Metoprolol [Lopressor] 12.5 mg PO BID #30 tablet 05/24/17 [Rx] Sucralfate [Carafate] 1 gm PO TID #120 tablet 05/24/17 [Rx] Allergies/Adverse Reactions: 3 Allergy/AdvReac Type Severity Reaction Status Date / Time No Known Allergies Allergy Verified 01/16/17 15:37 Procedures/tests Complete & Pending: Procedures Performed prior 72 hours Category Date Time Status Head CT without Contrast [CT head/brain wo con] [CT] Cat Scan 05/24/17 14:15 Completed Stat Date of admission: 05/23/17 00:59 Primary care physician: Attila Alvarez MD Consults: 05/23/17 17:25 Consult to Occupational Therapy [CONS] Routine Comment: Evaluate, develop and implement POC Reason for Consult: Gen weakness Consult to Physical Therapy [CONS] Routine Comment: Evaluate, develop and implement POC Reason for Consult: Gen weakness Consult to Topographical Field Assistant [CONS] Routine Reason for SW Consult: Discharge needs Discharging clinician: Jennifer Mejía Anticipated date of discharge: 05/24/17 - Patient Status Disposition: Home, Self-Care Condition: Fair - Discharge Instructions Instructions: Metoprolol (By mouth), Sucralfate (By mouth), Butalbital/ Acetaminophen/Caffeine (By mouth), Acute Headache (DC), Acute Abdominal Pain (DC ), Hypertensive Crisis (DC) Follow Up With: Attila Alvarez MD [Primary Care Provider] - 05/29/17 2:00 pm Terrance Newell MD [Partnered Physician] - (Follow up in 1-2 weeks regarding AAA office will call with appointment date and time) Lulu Mar MD [Partnered Physician] - (in 1-2 weeks for gastritis / possible repeat EGD If symptoms dont improve Office will call with appointment in 1-2 weeks.) - Diet and Activity Activity: increase activity as tolerated Diet: low fat, low cholesterol, low salt diet Hospital course: Ms. Tillman is a 76 year old female patient with history of diabetes mellitus type 2, hypertension, dyslipidemia and abdominal aortic aneurysm who presented to the ER with complaints of weakness and lightheadedness. She was also having intermittent severe headache. In the ER, she was found to have severely elevated blood pressure of up to 231/109. As such she was hospitalized here for hypertensive urgency. CT angiogram of abdomen and pelvis was done to look for any dissection. This showed a 4.7 cm infrarenal abdominal aortic aneurysm which needs to be followed every 6 months. Patient was also found to have a 3 mm hypodensity in the pancreatic tail which appears to be benign but a one-year follow-up was recommended. No other acute abnormalities were identified. Patient continued to have abdominal pain with no clear cause identified. She does have a history of gastroesophageal reflux disease and gastritis along with irritable bowel syndrome. She was started on treatment with PPI and Carafate. She continued to report headaches which did not respond to multiple medications. After further inquiry, it appears that the patient is undergoing a lot of stress at home with regards to her daughter and this appears to be causing a flareup of her symptoms including irritable bowel syndrome and headache. Her blood pressure improved with treatment and she has been placed on metoprolol in addition to Prinzide. She wishes to go home today despite her continued headache and will follow up with her primary care provider for further management of her chronic medical conditions. I will also refer her to GI as outpatient to see she needs a repeat upper GI endoscopy and to vascular surgery for follow-up on her abdominal aortic aneurysm. Initially, her urinalysis suggested possible UTI. She received IV Rocephin. Urine cultures were negative. She does not require any further antibiotics at this time. - Time Spent with Patient Total time spent providing and/or coordinating discharge services: Greater than 30 minutes (35 min) - Constitutional Vitals: Temp Pulse Resp BP Pulse Ox 97.3 F L 79 16 127/58 95 05/24/17 15:39 05/24/17 15:39 05/24/17 15:39 05/24/17 15:39 05/24/17 15:39 General appearance: Present: cooperative, mild distress, A&O X 3, pleasant, answers questions appropriately - Neck Neck exam general surgery: Present: supple, trachea midline. Absent: lymphadenopathy - Respiratory Respiratory exam: Present: CTAB. Absent: accessory muscle use, rales, rhonchi, wheezes - Cardiovascular Cardiovascular exam: Present: RRR, +S1, +S2. Absent: diastolic murmur, gallop, rubs, systolic murmur - GI/Abdominal GI/Abdominal exam: Present: normal bowel sounds, soft, tenderness (epigastric), no peritoneal signs. Absent: distended - Extremities Exam Extremities exam: Present: warm, radial pulses palpable and symmetrical. Absent : calf tenderness, cyanotic, pedal edema - Neurological Exam Neurological exam: Present: alert, oriented X3, no focal deficits. Absent: facial droop, speech deficit - Skin Skin exam: Present: dry, intact - VTE Documentation of Mechanical Device: Graduated compression elastic hosiery
== END 2017-05-24 17:30 | disposition home or self-care (01) | DRG 305 ==
LOC: 3BNU 15:47 → EMEROO 15:47 → 3BNU 22:16 → SUATTDRO 05-23 00:59
PROVIDERS: ADMIT Nurse Practitioner Family; ATTEND Internal Medicine

== ENCOUNTER 2018-05-14 15:50 | Observation (INO) ==
[2018-05-14] MEDS ORDERED: *HR* HYDROmorphone (PF) 1 MG/ML SYRINGE IVP STA (16:23)
[2018-05-14] MEDS ORDERED: Ondansetron 4 MG/2 ML VIAL IVP STA (16:23)
[2018-05-14] MEDS ORDERED: Isovue-370 500 ML INFUS..BTL IV ONE (16:24)
[2018-05-14] MEDS ORDERED: 0.9 % Sodium Chloride 1,000 ML IVC ONE ×2 (16:24→18:59)
[2018-05-14 16:52] LABS: Basophils % 0.6 %; Eosinophils % 0.2 %; Hemoglobin 12.5 g/dL (11.5-15.4); Immature Granulocytes % 0.2 % (0-4); Lymphocytes # 0.6 K/mcL (0.6-4.6); Lymphocytes % 11.3 %; Mean Corpuscular HGB Conc 35.7 g/dL (31.6-35.5); Mean Corpuscular Hemoglobin 32.5 pg (28.0-33.3); Mean Corpuscular Volume 90.9 fL (83.0-100.0); Mean Platelet Volume 9.5 fL (9.4-12.4); Monocytes # 0.3 K/mcL (0.0-1.3); Platelet Count 153 K/mcL (140-400); Red Blood Count 3.85 M/mcL (3.82-4.97); Red Cell Distribution Width 12.6 % (11.5-14.5); Segmented Neutrophils % 81.7 %
[2018-05-14 17:12] LABS: Alanine Aminotransferase 9 Units/L (7-52); Albumin 3.8 g/dL (3.5-5.7); Albumin/Globulin Ratio 1.9 (1.1-2.2); Alkaline Phosphatase 63 Units/L (34-104); Aspartate Amino Transferase 13 Units/L (13-39); BUN/Creatinine Ratio 15 (6-26); Bilirubin,Direct 0.1 mg/dL (0.0-0.2); Bilirubin,Indirect 0.5 mg/dL (0.0-1.2); Bilirubin,Total 0.6 mg/dL (0.3-1.0); Blood Urea Nitrogen 12 mg/dL (8-23); Calcium 9.4 mg/dL (8.6-10.3); Carbon Dioxide 27 mEq/L (23-29); Chloride 106 mEq/L (98-107); Glucose 115 mg/dL (70-105); Lipase 58 Units/L (11-82); Osmolality,Calculated 279 (280-300); Potassium 3.2 mEq/L (3.5-5.1); Sodium 134 mEq/L (136-145); Total Protein 5.8 g/dL (6.4-8.9); eGFR For Non-African Americans > 60 (> 60)
--- NOTE | 2018-05-14 19:21 | Emergency Department Note ---
Disposition Clinical Impression: Ileus Abdominal pain Qualifiers: Abdominal location: unspecified location Qualified Code(s): R10.9 - Unspecified abdominal pain Disposition: Admitted As Inpatient Condition: Good Referrals: Attila Alvarez MD [Primary Care Provider] - Forms: ED Satisfaction Letter, Work/School Release Abdominal Pain HPI - General Chief Complaint: ED Abdominal Pain Stated Complaint: abd pain Time Seen by Provider: 05/14/18 16:14 Source: patient Mode of arrival: ambulatory Limitations: no limitations Nursing Notes Reviewed: Yes Vital Signs Reviewed: Yes - History of Present Illness HPI Narrative: Patient brought in by family for evaluation of abdominal pain. Patient states she is abdominal pain and headache. Patient states that she has not had a bowel movement for 3-4 days is concerned about constipation. On exam the patient is very sensitive to touch. Patient jumps with palpation to both skin as well as just mild deep palpation. The patient also has this sort of tenderness throughout exam of the back. During my examination and talking with the patient she went from not wanting to look at the lights secondary to her headache to being conversational sitting up in bed without any acute distress. I did ask the patient about her narcotic use and she has taken chronic narcotics in the past but has not had any narcotics over the last couple of weeks. Her are unable to specifically tell me why. She is complaining of 10 out of 10 abdominal pain. She states that just in my time in the room her headache has gone from a 10 out of 10 to a 5 out of 10. I have looked in her chart in her chart shows that she has had multiple episodes of abdominal pain and headache with admissions in the past. She has undergone MRIs in the past for evaluation of her headaches without any significant findings. The patient has also had MRIs of her abdomen and pelvis with concerns for possible chronic pancreatitis. At this time due to his patient's significance of her pain as well as her 's overall concern. We will perform further workup including blood work and radiographic imaging. Pain Scale: 9 - Related Data Home Medications Medication Instructions Recorded Confirmed Cholecalciferol (D-3) [Vitamin D] 1,000 unit PO DAILY 01/03/17 06/06/17 Ferrous Sulfate 325 mg PO BIDWM 01/03/17 06/06/17 Gabapentin [Neurontin] 800 mg PO TID 01/03/17 06/06/17 HYDROcodone/Acet 5/325 mg [[place] 1 tab PO TID PRN 01/03/17 06/06/17 5-325 mg] Lisinopril/Hydrochlorothiazide 0.5 each PO BID 01/03/17 06/06/17 [Zestoretic 20-12.5 mg Tablet] Metformin HCl [Metformin HCl ER] 500 mg PO BID 01/03/17 06/06/17 [place]-3/Dha/Epa/Fish Oil [[place]-3 1,000 mg PO DAILY 01/03/17 06/06/17 Fish Oil 1,000 mg Sfgl] Omeprazole [PriLOSEC] 20 mg PO BIDAC 01/03/17 06/06/17 Pravastatin Sodium [Pravachol] 40 mg PO HS 01/03/17 06/06/17 Tamsulosin [Flomax] 0.4 mg PO DAILY 01/03/17 06/06/17 Ascorbate Calcium [Vitamin C] 500 mg PO DAILY 01/16/17 06/06/17 Calcium Carbonate [Calcium] 500 mg PO DAILY 01/16/17 06/06/17 Docusate [Colace] 100 mg PO BID PRN 01/16/17 06/06/17 Simethicone [Gas-X] 80 mg PO QID PRN 01/16/17 06/06/17 Lidocaine OINT 1 appl TP AD 05/22/17 06/06/17 Previous Rx's Medication Instructions Recorded Acetaminophen/Butalbital/Caffe 1 each PO Q6HR PRN #15 tab 05/24/17 [Fioricet] Metoprolol [Lopressor] 12.5 mg PO BID #30 tablet 05/24/17 Sucralfate [Carafate] 1 gm PO TID #120 tablet 05/24/17 GuaiFENesin/Dextromethorphan 5 ml PO Q6HR PRN #120 syrup 09/02/17 [Robitussin/DM] Loratadine [Allergy Relief] 10 mg PO DAILY #30 tablet 09/02/17 Sulfamethoxazole/Trimeth DS 1 each PO BID #14 tablet 09/02/17 [Bactrim DS] Allergies Allergy/AdvReac Type Severity Reaction Status Date / Time No Known Allergies Allergy Verified 01/16/17 15:37 Review of Systems: CONSTITUTIONAL: Generalized weakness and fatigue No weight loss, fever, chills HEENT: Eyes: No visual changes. Ears, Nose, Throat: No hearing loss, difficulty talking or unable to swallow. SKIN: No rash or itching. CARDIOVASCULAR: No chest pain, chest pressure or chest discomfort. No palpitations or edema. RESPIRATORY: No shortness of breath, cough or sputum. GASTROINTESTINAL: Nausea with food, no vomiting, no diarrhea. Generalized abdominal pain. GENITOURINARY: No burning on urination or hematuria. NEUROLOGICAL: Headache with photophobia No dizziness, syncope, paralysis, ataxia, numbness or tingling in the extremities. No change in bowel or bladder control. MUSCULOSKELETAL: Generalized muscle aches Abdominal Pain PMH - Past Medical History Medical history: Reports: diabetes, hyperlipidemia, hypertension Female Surgical History: Reports: cataract, hysterectomy, orthopedic, other, Tonsillectomy, other Psychiatric history: Reports: no psych history - Social History Smoking status: Never smoker Alcohol use: Reports: none Drug use: Reports: none Physical Exam General: Mild distress secondary to headache and lites. Head: Normocephalic Atraumatic Eyes: PERRL, EOMI ENT: Airway patent, no stridor Neck: supple Chest: Lungs clear to auscultation bilateral Cardiac: Regular rate and rhythm, no murmurs, rubs or gallops Abdomen: soft, generalized abdominal tenderness, nondistended; no guarding, rebound, or tenderness to percussion Musculoskeletal: Tenderness throughout the musculoskeletal system including positive [place] sign. Calves symmetric, nontender Skin: No rash, normal skin tone Neuro: Alert and Oriented to person, place, and time; No focal deficit, CN 2-12 symmetric and intact - General General appearance: alert, in no apparent distress Course - Reevaluation(s) Reevaluation #1: Patient reevaluated after medications and fluids. Patient has had significant improvement in symptoms. Patient has been found to have concern for ileus on CT. Patient has not been eating well secondary to nausea. No significant vomiting. No diarrhea. The patient is concerned about possible constipation as she is not had a good bowel movement. No significant constipation seen on CT. I did discuss findings with the patient and she initially states that she would like to go home. Patient was attempted to be given food as well as have repeat abdominal exam the patient did not tolerate either. Patient will be brought into the hospital for further evaluation. - Consultations Consultation #1: Discussed with hospitalist. Patient accepted for admission. Vital Signs Temperature 99.0 F 05/14/18 15:54 Pulse Rate 97 05/14/18 15:54 Respiratory Rate 22 05/14/18 15:54 Blood Pressure 143/80 05/14/18 15:54 O2 Sat by Pulse Oximetry 96 05/14/18 15:54 Temperature 99.0 F 05/14/18 16:08 Pulse Rate 60 05/14/18 20:05 Respiratory Rate 20 05/14/18 20:05 Blood Pressure 175/70 05/14/18 20:05 O2 Sat by Pulse Oximetry 99 05/14/18 20:05 Oxygen Delivery Oxygen Delivery Room Air Abdominal Pain - Lab Data Result diagrams: 05/14/18 16:34 05/14/18 16:34 Lab Results 05/14/18 05/14/18 05/14/18 Range/Units 16:34 16:34 16:34 WBC 4.9 (4.3-11.1) K/mcL RBC 3.85 (3.82-4.97) M/mcL Hgb 12.5 (11.5-15.4) g/dL Hct 35.0 L (35.3-44.9) % MCV 90.9 (83.0-100.0) fL MCH 32.5 (28.0-33.3) pg MCHC 35.7 H (31.6-35.5) g/dL RDW 12.6 (11.5-14.5) % Plt Count 153 (140-400) K/mcL MPV 9.5 (9.4-12.4) fL Immature Gran % 0.2 (0-4) % Seg Neutrophils % 81.7 % Lymphocytes % 11.3 % Monocytes % 6.0 % Eosinophils % 0.2 % Basophils % 0.6 % Neutrophils # 4.0 (1.6-8.9) K/mcL Lymphocytes # 0.6 (0.6-4.6) K/mcL Monocytes # 0.3 (0.0-1.3) K/mcL Eosinophils # 0.0 (0.0-0.6) K/mcL Basophils # 0.0 (0.0-0.2) K/mcL Sodium 134 L (136-145) mEq/L Potassium 3.2 L (3.5-5.1) mEq/L Chloride 106 (98-107) mEq/L Carbon Dioxide 27 (23-29) mEq/L BUN 12 (8-23) mg/dL Creatinine 0.79 (0.60-1.20) mg/dL Est GFR ( Amer) > 60 (> 60) Est GFR (Non-Af Amer) > 60 (> 60) BUN/Creatinine Ratio 15 (6-26) Glucose 115 H (70-105) mg/dL Calculated Osmolality 279 L (280-300) Lactic Acid 0.8 (0.5-2.2) mmol/L Calcium 9.4 (8.6-10.3) mg/dL Total Bilirubin 0.6 (0.3-1.0) mg/dL Direct Bilirubin 0.1 (0.0-0.2) mg/dL Indirect Bilirubin 0.5 (0.0-1.2) mg/dL AST 13 (13-39) Units/L ALT 9 (7-52) Units/L Alkaline Phosphatase 63 (34-104) Units/L Serum Total Protein 5.8 L (6.4-8.9) g/dL Albumin 3.8 (3.5-5.7) g/dL Globulin 2.0 L (2.4-3.5) g/dL Albumin/Globulin Ratio 1.9 (1.1-2.2) Lipase 58 (11-82) Units/L Urine Color (Yellow) Urine Clarity (Clear) Urine pH (5.0-8.0) pH Units Ur Specific [place] (1.010-1.025) Urine Protein (Neg-Trace) mg/dL Urine Glucose (UA) (Normal) mg/dL Urine Ketones (Negative) mg/dL Urine Blood (Negative) Urine Nitrite (Negative) Urine Bilirubin (Negative) Urine Urobilinogen (Normal) mg/dL Ur Leukocyte Esterase (Negative) Ur Culture Indicated? (NO) Specimen Rejected 05/14/18 05/14/18 Range/Units 18:03 20:04 WBC (4.3-11.1) K/mcL RBC (3.82-4.97) M/mcL Hgb (11.5-15.4) g/dL Hct (35.3-44.9) % MCV (83.0-100.0) fL MCH (28.0-33.3) pg MCHC (31.6-35.5) g/dL RDW (11.5-14.5) % Plt Count (140-400) K/mcL MPV (9.4-12.4) fL Immature Gran % (0-4) % Seg Neutrophils % % Lymphocytes % % Monocytes % % Eosinophils % % Basophils % % Neutrophils # (1.6-8.9) K/mcL Lymphocytes # (0.6-4.6) K/mcL Monocytes # (0.0-1.3) K/mcL Eosinophils # (0.0-0.6) K/mcL Basophils # (0.0-0.2) K/mcL Sodium (136-145) mEq/L Potassium (3.5-5.1) mEq/L Chloride (98-107) mEq/L Carbon Dioxide (23-29) mEq/L BUN (8-23) mg/dL Creatinine (0.60-1.20) mg/dL Est GFR ( Amer) (> 60) Est GFR (Non-Af Amer) (> 60) BUN/Creatinine Ratio (6-26) Glucose (70-105) mg/dL Calculated Osmolality (280-300) Lactic Acid (0.5-2.2) mmol/L Calcium (8.6-10.3) mg/dL Total Bilirubin (0.3-1.0) mg/dL Direct Bilirubin (0.0-0.2) mg/dL Indirect Bilirubin (0.0-1.2) mg/dL AST (13-39) Units/L ALT (7-52) Units/L Alkaline Phosphatase (34-104) Units/L Serum Total Protein (6.4-8.9) g/dL Albumin (3.5-5.7) g/dL Globulin (2.4-3.5) g/dL Albumin/Globulin Ratio (1.1-2.2) Lipase (11-82) Units/L Urine Color Yellow (Yellow) Urine Clarity Clear (Clear) Urine pH 6.5 (5.0-8.0) pH Units Ur Specific [place] 1.030 H (1.010-1.025) Urine Protein Negative (Neg-Trace) mg/dL Urine Glucose (UA) Normal (Normal) mg/dL Urine Ketones Negative (Negative) mg/dL Urine Blood Negative (Negative) Urine Nitrite Negative (Negative) Urine Bilirubin Negative (Negative) Urine Urobilinogen Normal (Normal) mg/dL Ur Leukocyte Esterase Negative (Negative) Ur Culture Indicated? NO (NO) Specimen Rejected Volume
[2018-05-14 20:16] LABS: Bilirubin,Urine Negative (Negative); Blood,Urine Negative (Negative); Clarity,Urine Clear (Clear); Color,Urine Yellow (Yellow); Glucose,Urine (UA) Normal (Normal); Ketones,Urine Negative (Negative); Leukocyte Esterase,Urine Negative (Negative); Nitrite,Urine Negative (Negative); PH,Urine 6.5 pH Units (5.0-8.0); Protein,Urine Negative (Neg-Trace); Urobilinogen,Urine Normal (Normal)
[2018-05-14] MEDS ORDERED: Ondansetron 4 MG/2 ML VIAL IVP PRN (20:57)
[2018-05-14] MEDS ORDERED: Hyoscyamine 0.5 MG/ML MLS IVP PRN (20:58)
[2018-05-14] MEDS: 0.9 % Sodium Chloride 1,000 ML IVC SCH (22:56)
[2018-05-15] MEDS: 0.9 % Sodium Chloride 1,000 ML IVC SCH (03:40)
[2018-05-15] MEDS ORDERED: Ondansetron 4 MG/2 ML VIAL IVP PRN (06:18)
[2018-05-15] MEDS: Ascorbic Acid 500 MG TABLET PO SCH (09:27)
[2018-05-15] MEDS: Gabapentin 400 MG CAPSULE PO SCH ×2 (09:27→21:43)
[2018-05-15] MEDS: Cholecalciferol (D-3) 1,000 UNIT TABLET PO SCH (09:27)
[2018-05-15] MEDS: amLODIPine 5 MG TABLET PO SCH (09:27)
[2018-05-15] MEDS: *HR* HYDROcodone/Acet 5/325 mg TABLET PO PRN (09:27)
[2018-05-15 11:00] LABS: Basophils % 0.9 %; Eosinophils % 0.4 %; Hematocrit 37.7 % (35.3-44.9); Hemoglobin 13.3 g/dL (11.5-15.4); Immature Granulocytes % 2.4 % (0-4); Lymphocytes # 1.1 K/mcL (0.6-4.6); Lymphocytes % 23.7 %; Mean Corpuscular HGB Conc 35.3 g/dL (31.6-35.5); Mean Corpuscular Hemoglobin 32.6 pg (28.0-33.3); Mean Corpuscular Volume 92.4 fL (83.0-100.0); Mean Platelet Volume 10.6 fL (9.4-12.4); Monocytes # 0.5 K/mcL (0.0-1.3); Monocytes % 9.9 %; Neutrophils # 2.9 K/mcL (1.6-8.9); Platelet Count 136 K/mcL (140-400); Red Blood Count 4.08 M/mcL (3.82-4.97); Segmented Neutrophils % 62.7 %
[2018-05-15 11:38] LABS: Prothrombin Time 11.7 Seconds (9.4-12.1)
[2018-05-15 11:42] LABS: Activated Partial Thrombo Time 19.1 Seconds (26.0-36.0)
[2018-05-15 13:59] LABS: BUN/Creatinine Ratio 14 (6-26); Blood Urea Nitrogen 8 mg/dL (8-23); Calcium 9.2 mg/dL (8.6-10.3); Carbon Dioxide 25 mEq/L (23-29); Chloride 108 mEq/L (98-107); Glucose 140 mg/dL (70-105); Magnesium 1.7 mg/dL (1.6-2.6); Osmolality,Calculated 285 (280-300); Phosphorous 2.6 mg/dL (2.7-4.5); Potassium 3.6 mEq/L (3.5-5.1); Sodium 137 mEq/L (136-145); eGFR For Non-African Americans > 60 (> 60)
--- NOTE | 2018-05-15 15:16 | Internal Med History&Physical ---
Date of Encounter: 05/15/18 Time of Encounter: 08:00 Internal Medicine - H&P: HPI Chief complaint: abdominal pain. Admitted From: Home Plans for Post Hospital Care: Home History of present illness: Ms. Tillman is a 77 year old female former smoker with history of HTn and HLD presented to the emergency department with abdominal pain. Her pain started about 3 days ago and is progressively worsening. She cannot recall any alleviating factors but her pain is exacerbated by palpation. She reports that she has not had any bowel movements for the past 3-4 days and is concerned about constipation so she took one laxative pill the day before admission but was unable to have any bowel movement. Her pain is 8 out of 10 with intermittent episodes of 5 out of 10 pain. She explains her pain is crampy in nature with intermittent sharp pain. As per ED documentation she has had multiple admissions with abdominal pain and there were concerns for possible chronic pancreatitis. She denies using any narcotics. Denies melena, hematochezia, hematemesis, abdominal trauma, nausea, vomiting. she denies sick contatcs, or recent Abx use. she denies chest pain, SOB, cough, fever, headache, falls, syncope, LOC. while in [facility] ED CT A/P was done which showed 1. There are a few fluid-filled dilated loops of distal small bowel within the pelvis which are nonspecific. Findings could be related to ileus. 2. 4.9 cm infrarenal abdominal aortic aneurysm. 3. No other acute abdominal or pelvic abnormality. 4. Stable 1.3 cm slightly hyperdense left renal lesion likely a hemorrhagic cyst. 5. Mild periportal edema, nonspecific. she was admitted for further management of possible ileus. she cannot recall her last colonoscopy or endoscopy has had US of abdomen before and recalls being told she has an aneurysm but has never followed up Past Med Surg Social Fam HX - Past Medical History Medical history: diabetes, hyperlipidemia, hypertension Additional medical history: Brain Aneurysm Psychiatric history: no psych history - Past Surgical History Surgical History: hysterectomy Additional surgical history: tonsillectomy, Ankle surgery - Social History Smoking Status: Never smoker Smokeless Tobacco Status: No Alcohol use: none Drug use: none - Family History Father Living Status: Hx Family Cardiac Disorders: Yes Mother Living Status: Hx Family Cardiac Disorders: Yes Hx Family Endocrine Disorder: Yes Brother Living Status: Hx Family Cardiac Disorders: Yes ([place]) Internal Medicine - H&P: Meds Ascorbate Calcium [Vitamin C] 500 mg PO DAILY 05/14/18 [History] Calcium Carbonate/Vitamin D3 [Calcium 500-Vit D3 200 Tablet] 1 tab PO DAILY [History] Cholecalciferol (D-3) [Vitamin D] 1,000 unit PO DAILY 05/14/18 [History] Citalopram Hydrobromide [Citalopram HBr] 10 mg PO HS 05/14/18 [History] Gabapentin [Neurontin] 1,600 mg PO HS 05/14/18 [History] Gabapentin [Neurontin] 800 mg PO QAM 05/14/18 [History] HYDROcodone/Acet 5/325 mg [[place] 5-325 mg] 1 tab PO Q8H PRN 05/14/18 [History] Meclizine HCl [Verticalm] 12.5 - 25 mg PO TID PRN 05/14/18 [History] Metformin HCl [Metformin HCl ER] 1,000 mg PO HS 05/14/18 [History] [place]-3/Dha/Epa/Fish Oil [[place]-3 Fish Oil 1,000 mg Sfgl] 1,000 mg PO DAILY [History] Pravastatin Sodium [Pravachol] 40 mg PO HS 05/14/18 [History] RX: Docusate [Colace] 100 mg PO DAILY PRN 05/14/18 [History] RX: Lipase/Protease/Amylase [[place] Dr 36,000 Units Capsule] 1 cap PO TIDWM 05/14 [History] RX: Lisinopril [Zestril] 10 mg PO BID 05/14/18 [History] Topiramate [Topiramate] 25 mg PO HS 05/14/18 [History] amLODIPine [Norvasc] 5 mg PO DAILY 05/14/18 [History] 3 Allergy/AdvReac Type Severity Reaction Status Date / Time No Known Allergies Allergy Verified 05/14/18 22:20 All Systems PM: review of systems was performed and is negative for pertinent findings except as documented above in the HPI. - Constitutional Vitals: Temp Pulse Resp BP Pulse Ox 98.0 F 63 15 144/80 100 05/15/18 08:30 05/15/18 08:30 05/15/18 08:30 05/15/18 08:30 05/15/18 08:30 Exam: General: Patient is alert, oriented, no acute distress, cachectic Head: atraumatic, normocephalic, Eye: normal appearance, PERRL, no scleral icterus, no conjunctival injection ENT: mucous membranes are dry, normal external ear exam Neck: normal inspection, trachea midline, full ROM, no carotid bruits Chest: normal inspection, symmetric chest rise Respiratory: Good respiratory effort. Bilateral breath sounds are clear without wheezing, crackles, or rhonchi. Cardiovascular: Regular rate and rhythm. s1 and s2 No clicks, rubs, gallops, or murmors. Abdomen: Bowel sounds present, Abdomen is soft, nondistended. scaphoid, no Epigastric tenderness. +ve for guarding in narinder LLQ and RLQ, no rebound musculoskeletal: Spontaneously moving all extremities. no edema, no calf tenderness Skin: warm, dry, intact. Neuro: Alert and oriented x4. Sensation light touch intact. Cranial nerves 2- 12 is intact. Not aphasic Psych: Patient's affect is normal Internal Med - H&P Results - Labs CBC & Chem 7: 05/15/18 10:18 05/15/18 13:18 Labs: Short CBC 05/15/18 Range/Units 10:18 WBC 4.7 (4.3-11.1) K/mcL Hgb 13.3 (11.5-15.4) g/dL Hct 37.7 (35.3-44.9) % Plt Count 136 L (140-400) K/mcL Neutrophils # 2.9 (1.6-8.9) K/mcL BMP 05/15/18 05/15/18 10:18 13:18 Sodium TNP 137 Potassium TNP 3.6 Chloride TNP 108 H Carbon Dioxide TNP 25 BUN TNP 8 Creatinine TNP 0.57 L Glucose TNP 140 H Calcium TNP 9.2 - Assessment and plan (1) Abdominal pain Current Visit: Yes Status: Acute Assessment and plan: abdominal pain on physical exam is out of proportion to labs ( concern for acute mesenteric ischemia vs ileus vs ischemic colitis vs laxative induced ) CT A/P with IV contrast performed in the ED showed patent SMA, THONY and celiac arteries She is on clear liquid diet which she is tolerating started stool softeners she reports she had 1 episode of small amount soft stool in the AM GI consulted will follow recommendations lactic acid negative stool guaiac Qualifiers: Abdominal location: generalized Qualified Code(s): R10.84 - Generalized abdominal pain (2) Ileus Current Visit: Yes Status: Acute Assessment and plan: Ct A/p in the ED Small hiatal hernia. Scattered colonic diverticula without acute diverticulitis. There are a few fluid-filled dilated loops of small bowel within the pelvis, the largest measuring up to 3.0 cm. These are nonspecific. No wall thickening or other dilated loops of bowel. No free air. showed GI was consulted spoke to Dr. Mar- will follow recommendations will replace all electrolytes serial abdominal exam she was encourage to ambulate stool softeners (3) Abdominal aneurysm Current Visit: Yes Status: Chronic Assessment and plan: former smoker histry of aneurysm is unsure of measurement CT A/P with contrast shows 4.9 cm infrarenal abdominal aortic aneurysm. vascular surgery consulted will follow recommendations (4) Hypertension Current Visit: No Status: Acute Assessment and plan: will continue with amlodipine Qualifiers: Hypertension type: unspecified Qualified Code(s): I10 - Essential (primary ) hypertension (5) DVT prophylaxis Current Visit: No Status: Acute Assessment and plan: heparin SC if platelet counts go below 100k will switch to SCDs - Time Spent With Patient Total time spent is greater than 50% in coordination of care (as documented) at patient's floor/unit and/or counseling patient:
--- NOTE | 2018-05-15 17:03 | Vascular/Endovasc Consult Note ---
Date of Encounter: 05/15/18 Time of Encounter: 16:30 Assessment and Plan (1) Constipation by delayed colonic transit Current Visit: Yes Status: Acute Patient has five-day history of constipation. This is in the process of medical workup. Consider GI consultation for further aid in this matter. (2) Abdominal pain Current Visit: Yes Status: Acute Patient has approximate five-day history of anterior abdominal wall pain. This pain does not appear to be peritoneal in origin. The pain is anterior and does not appear to be related to the aneurysm. Qualifiers: Abdominal location: lower abdomen, unspecified Qualified Code(s): R10.30 - Lower abdominal pain, unspecified (3) Abdominal aneurysm Current Visit: Yes Status: Chronic Patient has a 4.9 cm abdominal aortic aneurysm. The patient has a very short neck below the renal arteries. It is unclear on this exam by CT whether she would be an appropriate candidate for a endovascular repair in the future or would require open repair. I do note that her thoracic and upper abdominal aorta are relatively large in size for her physical status. I note no findings of retroperitoneal hematoma or edema associated with acute aneurysmal disease. There is no signs of infection involving the retroperitoneal area. I discussed the aneurysm findings with the patient. She was told many years ago that she had an aneurysm though she is unclear as to how it was identified and feels it was done through testing when she was being treated by Dr. Mar. I suggested to her that she follow up with me in 6 months with a repeat CT angiogram. I do not recommend aneurysm surgery at this time as I do not think it is the source of the patient's abdominal symptoms. All questions were answered that the patient posed to me today. - History of Present Illness Consult date: 05/15/18 Consult reason: Abdominal aortic aneurysm Chief complaint: Constipation History of present illness: Ms. Tillman is a 77 year old female Who was admitted last night for evaluation of constipation and abdominal pain. The patient states that she has been unable to have a bowel movement over the past 5 days. She usually has a bowel movement on a daily basis. She describes a sharp type of pain that begins in the upper epigastric region and appears to slowly radiate down into the lower pelvic area. This was all anterior on the abdominal wall. She denies any acute back pain. She is a small amount of flatus. She notes that the pain is present 24 hours a day but is made worse by physical activity. Prior to her hospitalization in general she describes her appetite is being stable over the past number of months. However, she does estimate that she may have lost up to 10 pounds though this is not clear and for no obvious etiology. The CT scan demonstrates a 4.9 cm abdominal aortic aneurysm that is found in the proximal infrarenal area of the abdominal aortic region. There is only a very short neck between the takeoff of the aneurysm and the renal arteries. There are no findings of retroperitoneal hematoma or edema surrounding the aneurysm. The patient does have calcification of the [place] of the aneurysm and the iliac vessels. The superior and celiac arteries appear to be patent. The patient denies any symptoms suggestive of mesenteric insufficiency. The patient states that she was told she had an aneurysm many years ago. She states that this was obtained through testing through Dr. Mar. The patient denies any family history of abdominal aortic aneurysms. She does note that her son had a brain aneurysm that required surgery. Past Med Surg Social Fam HX - Past Medical History Medical history: diabetes, hyperlipidemia, hypertension Additional medical history: Brain Aneurysm Psychiatric history: no psych history - Past Surgical History Surgical History: hysterectomy Additional surgical history: tonsillectomy, Ankle surgery - Social History Smoking Status: Never smoker Smokeless Tobacco Status: No Alcohol use: none Drug use: none - Family History Father Living Status: Hx Family Cardiac Disorders: Yes Mother Living Status: Hx Family Cardiac Disorders: Yes Hx Family Endocrine Disorder: Yes Brother Living Status: Hx Family Cardiac Disorders: Yes ([place]) Medications and Allergies Ascorbate Calcium [Vitamin C] 500 mg PO DAILY 05/14/18 [History] Calcium Carbonate/Vitamin D3 [Calcium 500-Vit D3 200 Tablet] 1 tab PO DAILY [History] Cholecalciferol (D-3) [Vitamin D] 1,000 unit PO DAILY 05/14/18 [History] Citalopram Hydrobromide [Citalopram HBr] 10 mg PO HS 05/14/18 [History] Docusate [Colace] 100 mg PO DAILY PRN 05/14/18 [History] Gabapentin [Neurontin] 1,600 mg PO HS 05/14/18 [History] Gabapentin [Neurontin] 800 mg PO QAM 05/14/18 [History] HYDROcodone/Acet 5/325 mg [[place] 5-325 mg] 1 tab PO Q8H PRN 05/14/18 [History] Lipase/Protease/Amylase [Bette Dr 36,000 Units Capsule] 1 cap PO TIDWM 05/14/18 [History] Lisinopril [Zestril] 10 mg PO BID 05/14/18 [History] Meclizine HCl [Verticalm] 12.5 - 25 mg PO TID PRN 05/14/18 [History] Metformin HCl [Metformin HCl ER] 1,000 mg PO HS 05/14/18 [History] [place]-3/Dha/Epa/Fish Oil [[place]-3 Fish Oil 1,000 mg Sfgl] 1,000 mg PO DAILY [History] Pravastatin Sodium [Pravachol] 40 mg PO HS 05/14/18 [History] Topiramate [Topiramate] 25 mg PO HS 05/14/18 [History] amLODIPine [Norvasc] 5 mg PO DAILY 05/14/18 [History] 3 Allergy/AdvReac Type Severity Reaction Status Date / Time No Known Allergies Allergy Verified 05/14/18 22:20 All Systems Review: The remainder of the systems were reviewed and are negative Exam Vital Signs, Last 4 Hours Temp Pulse Resp BP Pulse Ox 05/15/18 15:30 98.3 F 60 16 144/78 98 General: Present: Conversant, No Apparent Distress, Other (Thin elderly white female) HEENT: Present: Atraumatic, Normocephaly, Trachea midline, Other (Decreased muscle mass of the neck) Neck: Absent: JVD, Lymphadenopathy, Left Carotid bruit, Right Carotid bruit, Midline deformity, Tracheal deviation Cardiac: Present: Reg Rate and Rhythm, Normal S1 and S2, No Murmur. Absent: Irregular Rhythm Lungs: Present: Normal Breath Sounds, No Wheeze, Rales, Rhonchi Neuro: Present: Alert and responsive, No focal deficits noted, Cranial nerves grossly intact Abdomen: Present: Soft, Non-tender, Other (Patient has active bowel sounds. There are no abdominal bruits. I do not palpate the aneurysm though the patient has some voluntary guarding when I attempt to deeply compress the abdomen. No findings of petechiae or rashes along the periumbilical or flank region.). Absent: Masses Vascular: Present: Pulse, absent (I do not palpate pedal pulses at the left foot and ankle.), Pulse, normal (Normal right lower extremity pulses), Color/ Temperature (Patient has improved coloration of the foot and toes on the right side as compared to the left.), Other (No signs of distal embolization.) Skin: Present: No rashes noted on visualized skin. Absent: Wound/ulcer(s) Consult Discharge Plan - Plan Referrals: Attila Alvarez MD [Primary Care Provider] - Lazaro Aly MD [Partnered Physician] - (Follow-up with Dr. Aly in Vascular Surgery clinic in 6 months. Patient to have CT angiogram of abdomen and pelvis prior to office visit.)
[2018-05-15] MEDS: Topiramate 25 MG TABLET PO SCH (21:43)
[2018-05-15] MEDS: *HR* Heparin 5,000 UNIT/ML VIAL SQ SCH (21:44)
[2018-05-16] MEDS: 0.9 % Sodium Chloride 1,000 ML IVC SCH (04:33)
[2018-05-16] MEDS: *HR* Heparin 5,000 UNIT/ML VIAL SQ SCH ×3 (05:09→21:08)
[2018-05-16 06:14] LABS: Basophils % 1.2 %; Eosinophils # 0.1 K/mcL (0.0-0.6); Eosinophils % 3.8 %; Hematocrit 40.7 % (35.3-44.9); Hemoglobin 13.7 g/dL (11.5-15.4); Immature Granulocytes % 0.6 % (0-4); Lymphocytes # 0.9 K/mcL (0.6-4.6); Lymphocytes % 25.7 %; Mean Corpuscular HGB Conc 33.7 g/dL (31.6-35.5); Mean Corpuscular Hemoglobin 31.3 pg (28.0-33.3); Mean Corpuscular Volume 92.9 fL (83.0-100.0); Mean Platelet Volume 9.8 fL (9.4-12.4); Monocytes # 0.4 K/mcL (0.0-1.3); Monocytes % 12.4 %; Platelet Count 157 K/mcL (140-400); Red Blood Count 4.38 M/mcL (3.82-4.97); Red Cell Distribution Width 13.2 % (11.5-14.5); Segmented Neutrophils % 56.3 %
[2018-05-16 06:32] LABS: BUN/Creatinine Ratio 9 (6-26); Blood Urea Nitrogen 5 mg/dL (8-23); Calcium 9.3 mg/dL (8.6-10.3); Carbon Dioxide 25 mEq/L (23-29); Chloride 110 mEq/L (98-107); Glucose 89 mg/dL (70-105); Lactate Dehydrogenase 144 Units/L (140-271); Osmolality,Calculated 287 (280-300); Potassium 3.4 mEq/L (3.5-5.1); Sodium 140 mEq/L (136-145); eGFR For Non-African Americans > 60 (> 60)
[2018-05-16] MEDS: Gabapentin 400 MG CAPSULE PO SCH ×2 (07:36→21:08)
[2018-05-16] MEDS: Cholecalciferol (D-3) 1,000 UNIT TABLET PO SCH (07:37)
[2018-05-16] MEDS: Ascorbic Acid 500 MG TABLET PO SCH (07:37)
[2018-05-16] MEDS: amLODIPine 5 MG TABLET PO SCH (07:37)
--- NOTE | 2018-05-16 11:38 | Vascular/Endovas Progress Note ---
Date of Encounter: 05/16/18 Time of Encounter: 10:30 - Assessment and plan (1) Constipation by delayed colonic transit Current Visit: Yes Status: Acute Patient has 6-day history of constipation. This is in the process of medical workup. Consider GI consultation for further aid in this matter. (2) Abdominal pain Current Visit: Yes Status: Acute Patient has approximate 6 day history of anterior abdominal wall pain. This pain does not appear to be peritoneal in origin. The pain is anterior and does not appear to be related to the aneurysm. The abdomen is relatively benign. The patient's is in the room with her today. I reviewed with him as well but findings of the CT scan and my recommendations for follow-up in 6 months. I also explained that the abdominal aortic aneurysm is not involved or the causative agent of the present abdominal pain or constipation. All questions were answered. Qualifiers: Abdominal location: lower abdomen, unspecified Qualified Code(s): R10.30 - Lower abdominal pain, unspecified (3) Abdominal aneurysm Current Visit: Yes Status: Chronic Patient has a 4.9 cm abdominal aortic aneurysm. The patient has a very short neck below the renal arteries. It is unclear on this exam by CT whether she would be an appropriate candidate for a endovascular repair in the future or would require open repair. I do note that her thoracic and upper abdominal aorta are relatively large in size for her physical status. I note no findings of retroperitoneal hematoma or edema associated with acute aneurysmal disease. There is no signs of infection involving the retroperitoneal area. I discussed the aneurysm findings with the patient. She was told many years ago that she had an aneurysm though she is unclear as to how it was identified and feels it was done through testing when she was being treated by Dr. Mar. I suggested to her that she follow up with me in 6 months with a repeat CT angiogram. I do not recommend aneurysm surgery at this time as I do not think it is the source of the patient's abdominal symptoms. All questions were answered that the patient posed to me today. Patient's overall status is the same or mildly improved. No issue acutely with the abdominal aortic aneurysm. Follow-up in the vascular surgery clinic in 6 months. - Subjective Interval history: Patient is sitting up in bed. She has no new complaints. She is tolerating clear liquids without difficulty. She denies any nausea or vomiting. She has not had a bowel movement overnight but she has had flatus. Vital Signs, Last 4 Hours Temp Pulse Resp BP Pulse Ox 05/16/18 11:25 97.8 F 88 16 150/64 95 05/16/18 07:40 97 - Physical Examination General: Present: Conversant, No Apparent Distress HEENT: Present: Atraumatic Abdomen: Present: Soft, Other (Positive bowel sounds. Patient has pain on deep palpation.). Absent: Masses Skin: Present: No rashes noted on visualized skin Results 05/16/18 06:00 05/16/18 06:00 Lab Results, Last 24 hours 05/15/18 05/15/18 05/15/18 10:18 10:31 13:18 WBC Hgb Hct Plt Count INR 1.0 APTT 19.1 L Sodium TNP 137 Potassium TNP 3.6 Chloride TNP 108 H Carbon Dioxide TNP 25 BUN TNP 8 Creatinine TNP 0.57 L Glucose TNP 140 H Calcium TNP 9.2 Magnesium 1.7 05/16/18 05/16/18 06:00 06:00 WBC 3.5 L Hgb 13.7 Hct 40.7 Plt Count 157 INR APTT Sodium 140 Potassium 3.4 L Chloride 110 H Carbon Dioxide 25 BUN 5 L Creatinine 0.54 L Glucose 89 Calcium 9.3 Magnesium Consult Discharge Plan - Plan Referrals: Attila Alvarez MD [Primary Care Provider] - Lazaro Aly MD [Partnered Physician] - (Follow-up with Dr. Aly in Vascular Surgery clinic in 6 months. Patient to have CT angiogram of abdomen and pelvis prior to office visit.)
--- NOTE | 2018-05-16 12:36 | Internal Med Progress Note ---
Hospitalist Progress Note - Encounter Date of Encounter: 05/16/18 Time of Encounter: 08:00 - Subjective Interval History: she is doing better than yesterday. tries to have a BM this AM but was unsuccessful. her abdominal pain has improved somewhat but its not resolved. she was able to tolerate clear liquid diet and is requesting to increase her diet to solid foods. she denies fever, chills, Nausea and vomiting. denies melena and hematochezia - Exam Vitals: Temp Pulse Resp BP Pulse Ox 97.8 F 88 16 150/64 95 05/16/18 11:25 05/16/18 11:25 05/16/18 11:25 05/16/18 11:25 05/16/18 11:25 Exam: General: Patient is alert, oriented, no acute distress, cachectic Head: atraumatic, normocephalic, Eye: normal appearance, PERRL, no scleral icterus, no conjunctival injection ENT: mucous membranes are dry, normal external ear exam Neck: normal inspection, trachea midline, full ROM, no carotid bruits Chest: normal inspection, symmetric chest rise Respiratory: Good respiratory effort. Bilateral breath sounds are clear without wheezing, crackles, or rhonchi. Cardiovascular: Regular rate and rhythm. s1 and s2 No clicks, rubs, gallops, or murmors. Abdomen: Bowel sounds present, Abdomen is soft, nondistended. scaphoid, no Epigastric tenderness. +ve for guarding in narinder LLQ and RLQ, no rebound musculoskeletal: Spontaneously moving all extremities. no edema, no calf tenderness Skin: warm, dry, intact. Neuro: Alert and oriented x4. Sensation light touch intact. Cranial nerves 2- 12 is intact. Not aphasic Psych: Patient's affect is normal - Assessment and Plan (1) Abdominal pain Current Visit: Yes Status: Acute Assessment and Plan: abdominal pain on physical exam is out of proportion to labs ( concern for acute mesenteric ischemia vs ileus vs ischemic colitis vs laxative induced ) CT A/P with IV contrast performed in the ED showed patent SMA, THONY and celiac arteries She is on clear liquid diet which she is tolerating GI consulted spoke to Dr. sevilla on 05/15/18- will follow recommendations lactic acid negative stool guaiac (2) Ileus Current Visit: Yes Status: Acute Assessment and Plan: Ct A/p in the ED Small hiatal hernia. Scattered colonic diverticula without acute diverticulitis. There are a few fluid-filled dilated loops of small bowel within the pelvis, the largest measuring up to 3.0 cm. These are nonspecific. No wall thickening or other dilated loops of bowel. No free air. showed GI was consulted spoke to Dr. Sevilla- will follow recommendations will replace all electrolytes serial abdominal exam she was encourage to ambulate stool softeners (3) Abdominal aneurysm Current Visit: Yes Status: Chronic Assessment and Plan: former smoker histry of aneurysm is unsure of measurement CT A/P with contrast shows 4.9 cm infrarenal abdominal aortic aneurysm. vascular surgery recommendations appreciated (4) Hypertension Current Visit: No Status: Acute Assessment and Plan: on amlodipine 5 mg will increase it to 10 mg for better Bp control (5) Hypokalemia Current Visit: Yes Status: Acute Assessment and Plan: replaced with oral potassium bmp in AM (6) DVT prophylaxis Current Visit: No Status: Acute Assessment and Plan: heparin SC if platelet counts go below 100k will switch to SCDs - Time Spent with Patient Total time spent is greater than 50% in coordination of care (as documented) at patient's floor/unit and/or counseling patient: Internal Medicine: Result - Labs CBC & Chem 7: 05/16/18 06:00 05/16/18 06:00 Labs: Short CBC 05/16/18 Range/Units 06:00 WBC 3.5 L (4.3-11.1) K/mcL Hgb 13.7 (11.5-15.4) g/dL Hct 40.7 (35.3-44.9) % Plt Count 157 (140-400) K/mcL Neutrophils # 2.0 (1.6-8.9) K/mcL BMP 05/15/18 05/16/18 13:18 06:00 Sodium 137 140 Potassium 3.6 3.4 L Chloride 108 H 110 H Carbon Dioxide 25 25 BUN 8 5 L Creatinine 0.57 L 0.54 L Glucose 140 H 89 Calcium 9.2 9.3 - ABG Interpretation ABG results: PT/INR, D-dimer PT 11.7 Seconds (9.4-12.1) 05/15/18 10:31 Consult Discharge Plan - Plan Referrals: Attila Alvarez MD [Primary Care Provider] - Lazaro Aly MD [Partnered Physician] - (Follow-up with Dr. Aly in Vascular Surgery clinic in 6 months. Patient to have CT angiogram of abdomen and pelvis prior to office visit.) (1) Abdominal pain Qualifiers: Abdominal location: generalized Qualified Code(s): R10.84 - Generalized abdominal pain (4) Hypertension Qualifiers: Hypertension type: unspecified Qualified Code(s): I10 - Essential (primary) hypertension
--- NOTE | 2018-05-16 13:30 | Gastroenterology Consult Note ---
<[place]en [place] Nikki - Last Filed: 05/16/18 13:28> Date of Encounter: 05/16/18 Time of Encounter: 11:10 - Assessment and plan (1) Constipation by delayed colonic transit Current Visit: Yes Status: Acute Assessment and plan: Stop Creon. Start Miralax BID and fiber supplement. Encourage fluid intake and ambulation. Limit narcotics if able. (2) Abdominal pain Current Visit: Yes Status: Acute Assessment and plan: Likely secondary to constipation. Qualifiers: Abdominal location: lower abdomen, unspecified Qualified Code(s): R10.30 - Lower abdominal pain, unspecified - Time Spent With Patient Total time spent is greater than 50% in coordination of care (as documented) at patient's floor/unit and/or counseling patient: GI History of Present Illness - Data of Consult Patient: known to practice within the last 3 years Consult date: 05/16/18 Requesting Physician: Maria De Jesus Carrera MD - Consult Narrative Reason for consult: abdominal pain History of present illness: Ms. Tillman is a 77 year old female with PMHx of DM, HLD, HTN who presented to the ED with abdominal pain that started 3 days prior to admission and has been progressively worsening. She reports that she has not had any bowel movements for 4-5 days before admission and was concerned about constipation so she took one laxative pill the day before admission but was unable to have any BM. She denies fever, chills, chest pain, SOB, nausea, vomiting, melena, hematochezia. CT A/P shows few fluid-filled dilated loops of distal small bowel within the pelvis which are nonspecific and could be related to ileus, no wall thickening or other dilated loops of bowel. Procedures: Upper EUS 09/27/2017 Dr. Mar: Chronic pancreatitis s/p celiac block. Colonoscopy 01/05/2017 Dr. Mar: Diverticulosis EGD 01/05/2017 Dr. Mar: Gastritis Colonoscopy 03/09/2014 Dr. Mar: Diverticulosis, repeat colonoscopy in 7 years. NSAIDs: None Anticoagulation: None Past Med Surg Social Fam HX - Past Medical History Medical history: diabetes, hyperlipidemia, hypertension Additional medical history: Brain Aneurysm Psychiatric history: no psych history - Past Surgical History Surgical History: hysterectomy Additional surgical history: tonsillectomy, Ankle surgery - Social History Smoking Status: Never smoker Smokeless Tobacco Status: No Alcohol use: none Drug use: none - Family History Father Living Status: Hx Family Cardiac Disorders: Yes Mother Living Status: Hx Family Cardiac Disorders: Yes Hx Family Endocrine Disorder: Yes Brother Living Status: Hx Family Cardiac Disorders: Yes (OR) - Gastrointestinal Gastrointestinal: Present: as per HPI - Constitutional Constitutional: as per HPI - EENT Eyes: as per HPI Ears: Present: as per HPI Nose, mouth and throat: Present: as per HPI - Cardiovascular Cardiovascular ROS: Present: as per HPI - Respiratory Respiratory IM: Present: as per HPI - Genitourinary Genitourinary: Absent: change in color, Urinary frequency - Neurological ROS Neurological GI: Present: as per HPI - Hematologic/Lymphatic Hematologic/Lymphatic pediatric: Present: as per HPI - Musculoskeletal Musculoskeletal ROS GI: Present: as per HPI - Integumentary Integumentary GI: Present: as per HPI - Psychiatric ROS Psychiatric GI: Present: as per HPI - Endocrine Endocrine IM: Present: as per HPI - Constitutional Vitals: Temp Pulse Resp BP Pulse Ox 97.8 F 88 16 150/64 95 05/16/18 11:25 05/16/18 11:25 05/16/18 11:25 05/16/18 11:25 05/16/18 11:25 General appearance: Present: cooperative, A&O X 3, no acute distress, answers questions appropriately - Head Head exam: Present: atraumatic, normocephalic - Eye Eye exam: Present: normal appearance, sclera anicteric - ENT ENT exam: Present: mucous membranes moist - Neck Neck exam general surgery: Present: normal inspection, trachea midline - Respiratory Respiratory exam: Present: CTAB. Absent: rales, rhonchi - Cardiovascular Cardiovascular exam: Present: RRR, +S1, +S2 - GI/Abdominal GI/Abdominal exam: Present: guarding, soft, tenderness (RLQ, LLQ, epigastric), no peritoneal signs. Absent: distended, firm - Rectal Rectal exam: Present: deferred - Extremities Exam Extremities exam: Present: warm - Neurological Exam Neurological exam: Present: no focal deficits - Psychiatric Psychiatric exam: Present: normal affect, normal mood - Skin Skin exam: Present: dry, intact, normal color, warm Results - Labs CBC & Chem 7: 05/16/18 06:00 05/16/18 06:00 Labs: Last Result Calcium 9.3 mg/dL (8.6-10.3) 05/16/18 06:00 Entire Visit Hgb 13.7 g/dL (11.5-15.4) 05/16/18 06:00 Hct 40.7 % (35.3-44.9) 05/16/18 06:00 PT 11.7 Seconds (9.4-12.1) 05/15/18 10:31 Total Bilirubin 0.6 mg/dL (0.3-1.0) 05/14/18 16:34 AST 13 Units/L (13-39) 05/14/18 16:34 ALT 9 Units/L (7-52) 05/14/18 16:34 Lipase 58 Units/L (11-82) 05/14/18 16:34 - ABG ABG results: PT/INR, D-dimer PT 11.7 Seconds (9.4-12.1) 05/15/18 10:31 Consult Discharge Plan - Plan Referrals: Attila Alvarez MD [Primary Care Provider] - Lazaro Aly MD [Partnered Physician] - (Follow-up with Dr. Aly in Vascular Surgery clinic in 6 months. Patient to have CT angiogram of abdomen and pelvis prior to office visit.) <Lulu Mar - Last Filed: 05/16/18 22:48> Date of Encounter: 05/16/18 Time of Encounter: 17:45 - Time Spent With Patient Total time spent is greater than 50% in coordination of care (as documented) at patient's floor/unit and/or counseling patient: GI History of Present Illness - Data of Consult Requesting Physician: Maria De Jesus Carrera MD - Consult Narrative History of present illness: Ms. Tillman is a 77 year old female - Constitutional Vitals: Temp Pulse Resp BP Pulse Ox 97.8 F 64 15 150/72 99 05/16/18 19:02 05/16/18 19:02 05/16/18 19:02 05/16/18 19:02 05/16/18 19:02 Results - Labs CBC & Chem 7: 05/16/18 06:00 05/16/18 06:00 Labs: Last Result Calcium 9.3 mg/dL (8.6-10.3) 05/16/18 06:00 Entire Visit Hgb 13.7 g/dL (11.5-15.4) 05/16/18 06:00 Hct 40.7 % (35.3-44.9) 05/16/18 06:00 PT 11.7 Seconds (9.4-12.1) 05/15/18 10:31 Total Bilirubin 0.6 mg/dL (0.3-1.0) 05/14/18 16:34 AST 13 Units/L (13-39) 05/14/18 16:34 ALT 9 Units/L (7-52) 05/14/18 16:34 Lipase 58 Units/L (11-82) 05/14/18 16:34 - ABG ABG results: PT/INR, D-dimer PT 11.7 Seconds (9.4-12.1) 05/15/18 10:31 - Attending Attestation I have personally performed a face to face evaluation on this patient. I have reviewed and agree with the care plan. History and Exam by me shows: Pt seen. Comapling of constipation and abd cramping. O/E Abd not distended but has lower abd tanderness. A; Pt with abd pain with CT with poss ileus. Rec: Correct electrolytes, [place] of PO Golytely . On D/C amitiza 8 ug BID
[2018-05-16] MEDS ORDERED: SODIUM CHLORIDE/NAHCO3/KCL/PEG 4,000 ML SOLN.RECON PO ONE (19:10)
[2018-05-16] MEDS: *HR* HYDROcodone/Acet 5/325 mg TABLET PO PRN (19:53)
[2018-05-16] MEDS: Topiramate 25 MG TABLET PO SCH (21:08)
[2018-05-17 04:26] LABS: Hematocrit 41.5 % (35.3-44.9); Hemoglobin 14.2 g/dL (11.5-15.4); Mean Corpuscular HGB Conc 34.2 g/dL (31.6-35.5); Mean Corpuscular Hemoglobin 32.1 pg (28.0-33.3); Mean Corpuscular Volume 93.7 fL (83.0-100.0); Mean Platelet Volume 10.1 fL (9.4-12.4); Platelet Count 189 K/mcL (140-400); Red Blood Count 4.43 M/mcL (3.82-4.97); Red Cell Distribution Width 13.1 % (11.5-14.5)
[2018-05-17 04:46] LABS: BUN/Creatinine Ratio 11 (6-26); Blood Urea Nitrogen 5 mg/dL (8-23); Calcium 9.3 mg/dL (8.6-10.3); Carbon Dioxide 27 mEq/L (23-29); Chloride 109 mEq/L (98-107); Glucose 98 mg/dL (70-105); Osmolality,Calculated 289 (280-300); Potassium 3.9 mEq/L (3.5-5.1); Sodium 141 mEq/L (136-145); eGFR For Non-African Americans > 60 (> 60)
[2018-05-17] MEDS: *HR* Heparin 5,000 UNIT/ML VIAL SQ SCH (06:08)
[2018-05-17 06:58] VITALS: BP 152/68
[2018-05-17] MEDS: Cholecalciferol (D-3) 1,000 UNIT TABLET PO SCH (08:08)
[2018-05-17] MEDS: Gabapentin 400 MG CAPSULE PO SCH (08:09)
[2018-05-17] MEDS: Ascorbic Acid 500 MG TABLET PO SCH (08:09)
--- NOTE | 2018-05-17 08:32 | Discharge Summary ---
- NOTES TO OUTPATIENT PROVIDER Notes to Outpatient Provider: follow up with Dr. Mar for slow transit constipation. follow with vascular surgery Dr. Aly in 6 months. avoid narcotics as much as possible. Orders not resulted at time of discharge: Pending orders 05/15/18 08:34 Urinalysis reflex Microscopic [URIN] Routine Date of Encounter: 05/17/18 Time of Encounter: 08:30 - Discharge Diagnosis (1) Constipation by delayed colonic transit Priority: Primary Status: Acute (2) Abdominal pain Priority: Secondary Status: Acute Qualifiers: Abdominal location: generalized Qualified Code(s): R10.84 - Generalized abdominal pain (3) Ileus Priority: Secondary Status: Acute (4) Abdominal aneurysm Priority: Secondary Status: Chronic (5) Hypertension Priority: Secondary Status: Acute Qualifiers: Hypertension type: unspecified Qualified Code(s): I10 - Essential (primary ) hypertension (6) Hypokalemia Priority: Secondary Status: Acute (7) DVT prophylaxis Priority: Secondary Status: Acute (8) Cachexia Priority: Secondary Status: Acute Assessment and Plan: BMI 16 Hospital course: Ms. Tillman is a 77 year old female with history of diabetes, hyperlipidemia, hypertension who presented to the emergency department with abdominal pain that started 3 days prior to admission and has been progressively worsening. As per patient she had not have any bowel movements for the past 4-5 days before admission. She was concerned with constipation so she took one laxative pill without relief so she decided to come to the ED. While in the ED she had CT A/ P shows few fluid-filled dilated loops of distal small bowel within the pelvis which are nonspecific and could be related to ileus, no wall thickening or other dilated loops of bowel. As her pain was out of proportion to exam and laboratory finding there was concern for acute mesenteric ischemia although CT abdomen and pelvis with contrast showed patent celiac artery, SMA and THONY. CT abdomen and pelvis however did show 4.9 x 4.5 cm infrarenal abdominal aortic aneurysm. Vascular surgery was consulted and recommendations followed. She was treated with stool softeners however was unable to have bowel movements. GI was consulted, Creon was stopped and she was started on MiraLAX and fiber supplements. She had bowel movements, was able to tolerate by mouth diet and requested to be discharged home. She was Encouraged for fluid intake and ambulation and to Limit narcotics if able Procedures: Upper EUS 09/27/2017 Dr. Mar: Chronic pancreatitis s/p celiac block. Colonoscopy 01/05/2017 Dr. Mar: Diverticulosis EGD 01/05/2017 Dr. Mar: Gastritis Colonoscopy 03/09/2014 Dr. Mar: Diverticulosis, repeat colonoscopy in [address] A/P 1. There are a few fluid-filled dilated loops of distal small bowel within the pelvis which are nonspecific. Findings could be related to ileus. 2. 4.9 cm infrarenal abdominal aortic aneurysm. 3. No other acute abdominal or pelvic abnormality. 4. Stable 1.3 cm slightly hyperdense left renal lesion likely a hemorrhagic cyst. 5. Mild periportal edema, nonspecific. Discharge discussed with: patient, nurse - Time Spent with Patient Total time spent providing and/or coordinating discharge services: Less than 30 minutes - Discharge Medications Prescriptions: Polyethylene Glycol 3350 [MiraLAX] 17 gm PO BID 15 Days #30 powd.pack Psyllium Husk/Aspartame [Fiber Therapy Powder] 660 gm PO DAILY 15 Days #15 powder Home Medications: Ascorbate Calcium [Vitamin C] 500 mg PO DAILY 05/14/18 [History] Calcium Carbonate/Vitamin D3 [Calcium 500-Vit D3 200 Tablet] 1 tab PO DAILY [History] Cholecalciferol (D-3) [Vitamin D] 1,000 unit PO DAILY 05/14/18 [History] Citalopram Hydrobromide [Citalopram HBr] 10 mg PO HS 05/14/18 [History] Docusate [Colace] 100 mg PO DAILY PRN 05/14/18 [History] Gabapentin [Neurontin] 1,600 mg PO HS 05/14/18 [History] Gabapentin [Neurontin] 800 mg PO QAM 05/14/18 [History] HYDROcodone/Acet 5/325 mg [[place] 5-325 mg] 1 tab PO Q8H PRN 05/14/18 [History] Lisinopril [Zestril] 10 mg PO BID 05/14/18 [History] Meclizine HCl [Verticalm] 12.5 - 25 mg PO TID PRN 05/14/18 [History] Metformin HCl [Metformin HCl ER] 1,000 mg PO HS 05/14/18 [History] [place]-3/Dha/Epa/Fish Oil [[place]-3 Fish Oil 1,000 mg Sfgl] 1,000 mg PO DAILY [History] Pravastatin Sodium [Pravachol] 40 mg PO HS 05/14/18 [History] Topiramate 25 mg PO HS 05/14/18 [History] amLODIPine [Norvasc] 5 mg PO DAILY 05/14/18 [History] Polyethylene Glycol 3350 [MiraLAX] 17 gm PO BID 15 Days #30 powd.pack 05/17/18 [ Rx] Psyllium Husk/Aspartame [Fiber Therapy Powder] 660 gm PO DAILY 15 Days #15 powder 05/17/18 [Rx] Allergies/Adverse Reactions: 3 Allergy/AdvReac Type Severity Reaction Status Date / Time No Known Allergies Allergy Verified 05/14/18 22:20 Date of admission: 05/14/18 22:00 Primary care physician: Attila Alvarez MD Consults: 05/15/18 12:41 Consult to Vascular Surgery [CONS] Routine Consulting Provider: [facility] Reason for Consult: AAA 4.9 cm Call Completed: No 05/15/18 12:42 Consult to Gastroenterology [CONS] Routine Consulting Provider: [facility] Reason for Consult: ileus, abdominal pain out of proportion to examination Call Completed: No - Constitutional Vitals: Temp Pulse Resp BP Pulse Ox 97.6 F 60 14 152/68 97 05/17/18 06:55 05/17/18 06:55 05/17/18 06:55 05/17/18 06:55 05/17/18 07:50 Exam: General: Patient is alert, oriented, no acute distress, cachectic Head: atraumatic, normocephalic, Eye: normal appearance, PERRL, no scleral icterus, no conjunctival injection ENT: mucous membranes are dry, normal external ear exam Neck: normal inspection, trachea midline, full ROM, no carotid bruits Chest: normal inspection, symmetric chest rise Respiratory: Good respiratory effort. Bilateral breath sounds are clear without wheezing, crackles, or rhonchi. Cardiovascular: Regular rate and rhythm. s1 and s2 No clicks, rubs, gallops, or murmors. Abdomen: Bowel sounds present, Abdomen is soft, nondistended. scaphoid, no Epigastric tenderness. musculoskeletal: Spontaneously moving all extremities. no edema, no calf tenderness Skin: warm, dry, intact. Neuro: Alert and oriented x4. Sensation light touch intact. Cranial nerves 2- 12 is intact. Not aphasic Psych: Patient's affect is normal - Patient Status Disposition: Home, Self-Care Condition: Good Functional capacity at discharge: independent ambulation Overall status at discharge: patient is progressing back to baseline - Discharge Instructions Follow Up With: Attila Alvarez MD [Primary Care Provider] - Lazaro Aly MD [Partnered Physician] - (Follow-up with Dr. Aly in Vascular Surgery clinic in 6 months. Patient to have CT angiogram of abdomen and pelvis prior to office visit.) Lulu Mar MD [Partnered Physician] - - Diet and Activity Activity: increase activity as tolerated Diet: advance to your usual diet
[2018-05-17] MEDS ORDERED: amLODIPine 5 MG TABLET PO SCH (09:00)
== END 2018-05-17 11:09 | disposition home or self-care (01) ==
LOC: 3ANU 15:50 → EMEROOARM 15:50 → SUATTDRO 22:00 → 3ANU 23:00
PROVIDERS: ADMIT Family Medicine; ATTEND Internal Medicine

== ENCOUNTER 2021-02-18 03:58 | Inpatient (IN) ==
[2021-02-18] MEDS ORDERED: Ondansetron 4 MG/2 ML VIAL IVP ONE (04:04)
[2021-02-18] MEDS ORDERED: Morphine Sulfate 2 MG/ML SYRINGE IVP ONE ×2 (04:04→04:52)
[2021-02-18 04:58] LABS: Basophils # 0.1 K/mcL (0.0-0.2); Basophils % 0.9 %; Eosinophils # 1.1 K/mcL (0.0-0.6); Eosinophils % 13.6 %; Hematocrit 39.4 % (35.3-44.9); Hemoglobin 13.1 g/dL (11.5-15.4); Immature Granulocytes % 0.7 % (0-4); Lymphocytes # 2.7 K/mcL (0.6-4.6); Mean Corpuscular HGB Conc 33.2 g/dL (31.6-35.5); Mean Corpuscular Hemoglobin 30.9 pg (28.0-33.3); Mean Corpuscular Volume 92.9 fL (83.0-100.0); Mean Platelet Volume 9.6 fL (9.4-12.4); Monocytes # 0.5 K/mcL (0.0-1.3); Monocytes % 5.9 %; Neutrophils # 3.6 K/mcL (1.6-8.9); Platelet Count 250 K/mcL (140-400); Red Blood Count 4.24 M/mcL (3.82-4.97); Red Cell Distribution Width 13.2 % (11.5-14.5); Segmented Neutrophils % 44.9 %; White Blood Count 8.1 K/mcL (4.3-11.1)
[2021-02-18 05:18] LABS: BUN/Creatinine Ratio 30 (6-26); Blood Urea Nitrogen 19 mg/dL (8-23); Calcium 9.8 mg/dL (8.6-10.3); Carbon Dioxide 25 mEq/L (23-29); Chloride 107 mEq/L (98-107); Glucose 111 mg/dL (70-105); Osmolality,Calculated 291 (280-300); Potassium 3.7 mEq/L (3.5-5.1); Sodium 139 mEq/L (136-145); Troponin I < 0.03 ng/mL (< 0.04); eGFR For African Americans > 60 (> 60); eGFR For Non-African Americans > 60 (> 60)
[2021-02-18] MEDS: *HR* HYDROmorphone (PF) 1 MG/ML SYRINGE IVP ONE ×2 (05:41→05:48)
[2021-02-18 05:43] LABS: Bilirubin,Urine Negative (Negative); Blood,Urine Negative (Negative); Clarity,Urine Clear (Clear); Color,Urine Light-Yellow (Yellow); Glucose,Urine (UA) Normal (Normal); Ketones,Urine Negative (Negative); Leukocyte Esterase,Urine Negative (Negative); Nitrite,Urine Negative (Negative); PH,Urine 6.5 pH Units (5.0-8.0); Protein,Urine Negative (Neg-Trace); Specific Gravity,Urine 1.015 (1.010-1.025); Urobilinogen,Urine Normal (Normal)
[2021-02-18] MEDS ORDERED: Naloxone 0.4 MG/ML INJ IVP PRN (07:09)
[2021-02-18] MEDS ORDERED: Acetaminophen 325 MG TABLET PO PRN (07:09)
[2021-02-18] MEDS ORDERED: Ondansetron 4 MG/2 ML VIAL IVP PRN (07:09)
[2021-02-18] MEDS ORDERED: D5% in Water 1,000 ML IVC PRN (07:19)
[2021-02-18] MEDS ORDERED: Dextrose Gel 15 GM/37.5 ML TUBE PO PRN ×2 (07:19)
[2021-02-18] MEDS ORDERED: *HR* Dextrose 50 % in Water (Vial) 50 ML VIAL IVP PRN (07:19)
[2021-02-18] MEDS: *HR* HYDROmorphone (PF) 1 MG/ML SYRINGE IVP PRN (08:24)
[2021-02-18] MEDS ORDERED: CeFAZolin Syr 2,000MG/20 ML 2,000 MG/20 ML SYRINGE IVPB ONE (09:30)
[2021-02-18 10:49] LABS: Adenovirus Not Detected (Not Detect); Coronavirus 229E Not Detected (Not Detect); Coronavirus HKU1 Not Detected (Not Detect); Coronavirus NL63 Not Detected (Not Detect); Coronavirus OC43 Not Detected (Not Detect); Human Metapneumovirus Not Detected (Not Detect); Human Rhinovirus/Enterovirus Not Detected (Not Detect); Influenza A Subtype 2009 H1 Not Detected (Not Detect); Influenza B Not Detected (Not Detect); Parainfluenza Virus 1 Not Detected (Not Detect); Parainfluenza Virus 2 Not Detected (Not Detect); Parainfluenza Virus 3 Not Detected (Not Detect); SARS-CoV-2 Not Detected (Not Detect)
[2021-02-18 10:50] LABS: Bordetella Pertussis Not Detected (Not Detect); Chlamydophila pneumoniae Not Detected (Not Detect); Mycoplasma pneumoniae Not Detected (Not Detect); Parainfluenza Virus 4 Not Detected (Not Detect); Respiratory Syncytial Virus Not Detected (Not Detect)
[2021-02-18] MEDS: Insulin LISPRO 300 UNITS/3 ML VIAL SUBQ SCH ×2 (11:00→17:13)
[2021-02-18] MEDS ORDERED: *HR* FentaNYL (PF) 100 MCG/2 ML VIAL ONE (13:35)
[2021-02-18] MEDS ORDERED: Lidocaine -MPF 2% 2 ML VIAL ONE (13:35)
[2021-02-18] MEDS ORDERED: *HR* Succinylcholine 200 MG/10 ML VIAL IVP ONE (13:35)
[2021-02-18] MEDS ORDERED: *HR* Propofol 200 MG/20 ML VIAL IVP ONE (13:35)
[2021-02-18] MEDS ORDERED: Ondansetron 4 MG/2 ML VIAL ONE (13:35)
[2021-02-18] MEDS ORDERED: Lidocaine HCL 4 ML Topical Solution (Laryng-O-Jet Kit Sterile Pak) TP ONE (14:00)
[2021-02-18] MEDS ORDERED: Acetaminophen IV 1,000 MG/100 ML BAG IVPB ONE (14:46)
[2021-02-18] MEDS ORDERED: Neostigmine Methylsulfate 3 MG/3 ML SYRINGE ONE (14:51)
[2021-02-18] MEDS ORDERED: *HR* HYDROmorphone PF 0.5 MG/0.5 ML SYRINGE IVP PRN (15:11)
[2021-02-18] MEDS ORDERED: *HR* HYDROmorphone (PF) 1 MG/ML SYRINGE ONE (15:27)
[2021-02-18] MEDS: *HR* Heparin 5,000 UNIT/ML VIAL SQ SCH (17:13)
[2021-02-18] MEDS: CeFAZolin 2 GM/120 ML BAG IVPB SCH (21:20)
[2021-02-18] MEDS: *HR* OxyCODONE Immed Rel 5 MG TABLET PO PRN (21:36)
[2021-02-19] MEDS: *HR* HYDROcodone/Acet 5/325 mg TABLET PO PRN ×4 (00:38→23:25)
[2021-02-19] MEDS: Insulin LISPRO 300 UNITS/3 ML VIAL SUBQ SCH ×4 (01:48→18:28)
[2021-02-19] MEDS: *HR* HYDROmorphone (PF) 1 MG/ML SYRINGE IVP PRN (02:42)
[2021-02-19] MEDS: CeFAZolin 2 GM/120 ML BAG IVPB SCH (05:32)
[2021-02-19] MEDS: *HR* Heparin 5,000 UNIT/ML VIAL SQ SCH ×2 (05:41→18:32)
[2021-02-19] MEDS: *HR* OxyCODONE Immed Rel 5 MG TABLET PO PRN ×2 (05:51→18:48)
[2021-02-19 07:08] LABS: Basophils % 0.4 %; Eosinophils # 0.1 K/mcL (0.0-0.6); Eosinophils % 1.2 %; Hematocrit 35.9 % (35.3-44.9); Hemoglobin 11.9 g/dL (11.5-15.4); Immature Granulocytes % 0.4 % (0-4); Lymphocytes # 0.9 K/mcL (0.6-4.6); Lymphocytes % 10.9 %; Mean Corpuscular HGB Conc 33.1 g/dL (31.6-35.5); Mean Corpuscular Hemoglobin 31.5 pg (28.0-33.3); Mean Platelet Volume 9.6 fL (9.4-12.4); Monocytes # 0.8 K/mcL (0.0-1.3); Monocytes % 9.7 %; Neutrophils # 6.3 K/mcL (1.6-8.9); Platelet Count 196 K/mcL (140-400); Red Blood Count 3.78 M/mcL (3.82-4.97); Red Cell Distribution Width 13.2 % (11.5-14.5); Segmented Neutrophils % 77.4 %; White Blood Count 8.1 K/mcL (4.3-11.1)
[2021-02-19 07:30] LABS: BUN/Creatinine Ratio 27 (6-26); Blood Urea Nitrogen 20 mg/dL (8-23); Calcium 8.9 mg/dL (8.6-10.3); Carbon Dioxide 23 mEq/L (23-29); Chloride 107 mEq/L (98-107); Glucose 132 mg/dL (70-105); Magnesium 1.7 mg/dL (1.6-2.6); Osmolality,Calculated 288 (280-300); Potassium 3.9 mEq/L (3.5-5.1); Sodium 137 mEq/L (136-145); eGFR For African Americans > 60 (> 60); eGFR For Non-African Americans > 60 (> 60)
[2021-02-20] MEDS: Insulin LISPRO 300 UNITS/3 ML VIAL SUBQ SCH ×2 (00:36→05:45)
[2021-02-20] MEDS: *HR* Heparin 5,000 UNIT/ML VIAL SQ SCH (05:42)
[2021-02-20] MEDS: *HR* HYDROcodone/Acet 5/325 mg TABLET PO PRN (09:50)
[2021-02-20 10:06] VITALS: BP 111/77
== END 2021-02-20 15:22 | DRG 956 ==
LOC: 3NENU 03:58 → EMEROOARM 03:58 → SUATTDRO 08:04 → 3NENU 08:06
PROVIDERS: ADMIT Internal Medicine; ATTEND Internal Medicine

== ENCOUNTER 2021-05-05 08:00 | Observation (INO) ==
[2021-05-05] MEDS ORDERED: Isovue-370 500 ML BOTTLE IVP ONE (08:29)
[2021-05-05 09:31] LABS: Alanine Aminotransferase 7 Units/L (7-52); Albumin 4.4 g/dL (3.5-5.7); Albumin/Globulin Ratio 1.5 (1.1-2.2); Alkaline Phosphatase 146 Units/L (34-104); Aspartate Amino Transferase 14 Units/L (13-39); BUN/Creatinine Ratio 18 (6-26); Bilirubin,Indirect 0.5 mg/dL (0.0-1.0); Bilirubin,Total 0.5 mg/dL (0.3-1.0); Blood Urea Nitrogen 13 mg/dL (8-23); Calcium 10.2 mg/dL (8.6-10.3); Carbon Dioxide 24 mEq/L (23-29); Chloride 107 mEq/L (98-107); Glucose 96 mg/dL (70-105); Osmolality,Calculated 290 (280-300); Potassium 3.7 mEq/L (3.5-5.1); Sodium 140 mEq/L (136-145); Total Protein 7.4 g/dL (6.4-8.9); eGFR For African Americans > 60 (> 60); eGFR For Non-African Americans > 60 (> 60)
[2021-05-05 10:09] LABS: Basophils # 0.1 K/mcL (0.0-0.2); Basophils % 1.4 %; Eosinophils # 0.2 K/mcL (0.0-0.6); Eosinophils % 2.7 %; Hematocrit 41.6 % (35.3-44.9); Hemoglobin 13.9 g/dL (11.5-15.4); Immature Granulocytes % 0.3 % (0-4); Lymphocytes # 1.1 K/mcL (0.6-4.6); Lymphocytes % 13.5 %; Mean Corpuscular HGB Conc 33.4 g/dL (31.6-35.5); Mean Corpuscular Hemoglobin 30.5 pg (28.0-33.3); Mean Corpuscular Volume 91.2 fL (83.0-100.0); Mean Platelet Volume 9.1 fL (9.4-12.4); Monocytes # 0.3 K/mcL (0.0-1.3); Monocytes % 3.4 %; Neutrophils # 6.1 K/mcL (1.6-8.9); Platelet Count 237 K/mcL (140-400); Red Blood Count 4.56 M/mcL (3.82-4.97); Red Cell Distribution Width 13.2 % (11.5-14.5); Segmented Neutrophils % 78.7 %; White Blood Count 7.8 K/mcL (4.3-11.1)
[2021-05-05 10:16] LABS: Troponin I < 0.03 ng/mL (< 0.04)
[2021-05-05 11:07] LABS: Bilirubin,Urine Negative (Negative); Blood,Urine Trace (Negative); Clarity,Urine Clear (Clear); Color,Urine Light-Yellow (Yellow); Glucose,Urine (UA) Normal (Normal); Ketones,Urine 10 mg/dL (Negative); Leukocyte Esterase,Urine Negative (Negative); Nitrite,Urine Negative (Negative); Protein,Urine Negative (Neg-Trace); Specific Gravity,Urine > 1.030 (1.010-1.025); Squamous Epithelial Cell,Urine Few per hpf (None-Few); Urobilinogen,Urine Normal (Normal); WBC,Urine 0-3 per hpf (0-3)
[2021-05-05] MEDS ORDERED: Naloxone 0.4 MG/ML INJ IVP PRN (13:21)
[2021-05-05] MEDS ORDERED: *HR* HYDROcodone/Acet 5/325 mg TABLET PO PRN (13:21)
[2021-05-05] MEDS ORDERED: Perflutren Lipid Microsphere 1.3 ML in 0.9 % Sodium Chloride 8.7 ML IVP PRN (13:23)
[2021-05-05] MEDS: *HR* Heparin 5,000 UNIT/ML VIAL SQ SCH (18:02)
[2021-05-05] MEDS ORDERED: QUEtiapine Fumarate 25 MG TABLET PO PRN (20:00)
[2021-05-05] MEDS ORDERED: *HR* Labetalol 20 MG/4 ML SYRINGE IVP ONE (22:42)
[2021-05-06] MEDS: *HR* Heparin 5,000 UNIT/ML VIAL SQ SCH ×2 (05:16→17:43)
[2021-05-06] MEDS ORDERED: lisinopriL 20 MG TABLET PO SCH (09:00)
[2021-05-06 11:05] VITALS: PULSE 82; TEMP 98.3; O2SAT 94
[2021-05-06 13:48] LABS: Adenovirus Not Detected (Not Detect); Bordetella Pertussis Not Detected (Not Detect); Chlamydophila pneumoniae Not Detected (Not Detect); Coronavirus 229E Not Detected (Not Detect); Coronavirus HKU1 Not Detected (Not Detect); Coronavirus NL63 Not Detected (Not Detect); Coronavirus OC43 Not Detected (Not Detect); Human Metapneumovirus Not Detected (Not Detect); Human Rhinovirus/Enterovirus Not Detected (Not Detect); Influenza A Subtype 2009 H1 Not Detected (Not Detect); Influenza B Not Detected (Not Detect); Mycoplasma pneumoniae Not Detected (Not Detect); Parainfluenza Virus 1 Not Detected (Not Detect); Parainfluenza Virus 2 Not Detected (Not Detect); Parainfluenza Virus 3 Not Detected (Not Detect); Parainfluenza Virus 4 Not Detected (Not Detect); Respiratory Syncytial Virus Not Detected (Not Detect); SARS-CoV-2 Not Detected (Not Detect)
[2021-05-06 14:26] VITALS: BP 128/69
[2021-05-06] MEDS: hydrOXYzine pamoate 25 MG CAPSULE PO SCH ×2 (15:48→20:21)
[2021-05-06] MEDS ORDERED: Topiramate 25 MG TABLET PO SCH (21:00)
[2021-05-06] MEDS ORDERED: Mirtazapine 15 MG TABLET PO SCH (21:00)
[2021-05-06] MEDS ORDERED: Sennosides/Docusate Sodium TABLET PO SCH (21:00)
== END 2021-05-06 22:28 ==
LOC: EMEROOARM 08:00 → 3BNU 08:00 → SUATTDRO 13:07 → 3BNU 14:07
PROVIDERS: ADMIT General Practice; ATTEND Internal Medicine